=== PATIENT | male | born 1960 | race African-American/Black ===

== ENCOUNTER → 2016-07-28 | Outpatient (CLI) | payer MEDICARE, OTHER ==
[2016-07-31 07:19] LABS: TESTOSTERONE FREE (DIRECT) 6.5 pg/mL (7.2-24.0)
== END ==
LOC: OD 15:17
PROVIDERS: ATTEND Pain Medicine Pain Medicine
DX: Z79.891 Long term (current) use of opiate analgesic (principal)
CPT/HCPCS: 36415; 84402; 84403

== ENCOUNTER 2017-06-14 16:07 | Emergency (ER) | payer MEDICARE, OTHER ==
--- NOTE | 2017-06-14 18:23 | ER Document Report ---
ED General - General Chief Complaint: Ankle Swelling Stated Complaint: JOINT PAIN, SWELLING Time Seen by Provider: 06/14/17 17:58 Mode of Arrival: Ambulatory Information source: Patient TRAVEL OUTSIDE OF THE [place] IN LAST 30 DAYS: No - HPI Notes: 56-year-old male with a history of hypertension, GERD, cardiac stents presents today here with complaints of left lower ankle Swelling, erythema and pain that has been progressively worsening over the last 3 weeks but worse over the last 2 days. Denies any fevers or chills. pain 4/10, achy. Has not tried any over- the-counter medication. Has not tried any elevation. Denies any long travel, recent surgery, hx of blood clots, chemo or long periods of immobilization. denies any n/t in leg. no otc medications tried. denies any trauma to leg. Denies any cp, sob, n/v/d, abd pain, dysuria and hematuria. Denies any chest pain, shortness of breath, nausea, vomiting, diarrhea, or tingling down bilateral lower extremities or weakness. There is any lower back pain, denies issues with bowel or bladder dysfunction. Denies saddle anesthesia. Is being a diabetic. Denies blurred vision, double vision, loss of vision. - Related Data Allergies/Adverse Reactions: aspirin [Aspirin] Allergy (Severe, Verified 06/14/17 17:55) Swelling of Throat ibuprofen [From Motrin] Allergy (Severe, Verified 06/14/17 17:55) Swelling of Throat Past Medical History - General Information source: Patient - Social History Smoking Status: Unknown if Ever Smoked Chew tobacco use (# tins/day): No Frequency of alcohol use: None Drug Abuse: None Family History: Reviewed & Not Pertinent Patient has suicidal ideation: No Patient has homicidal ideation: No - Past Medical History Cardiac Medical History: Reports: Hx Heart Attack, Hx Hypertension Renal/ Medical History: Denies: Hx Peritoneal Dialysis GI Medical History: Reports: Hx Gastroesophageal Reflux Disease Past Surgical History: Reports: Hx Cardiac Surgery - Stents x5 - Immunizations Hx Diphtheria, Pertussis, Tetanus Vaccination: Yes Review of Systems - Review of Systems Constitutional: No symptoms reported EENT: No symptoms reported Cardiovascular: No symptoms reported Respiratory: No symptoms reported Gastrointestinal: No symptoms reported Genitourinary: No symptoms reported Male Genitourinary: No symptoms reported Musculoskeletal: See HPI Skin: See HPI Hematologic/Lymphatic: No symptoms reported Neurological/Psychological: No symptoms reported Physical Exam - Vital signs Vitals: Temp Pulse Resp BP Pulse Ox 98.5 F 88 20 139/77 H 99 06/14/17 16:12 06/14/17 16:12 06/14/17 16:12 06/14/17 16:12 06/14/17 16:12 - Notes Notes: PHYSICAL EXAMINATION: GENERAL: Well-appearing, well-nourished and in no acute distress. HEAD: Atraumatic, normocephalic. EYES: Pupils equal round and reactive to light, extraocular movements intact, sclera anicteric, conjunctiva are normal. ENT: Nares patent, oropharynx clear without exudates. Moist mucous membranes. NECK: Normal range of motion, supple without lymphadenopathy LUNGS: Breath sounds clear to auscultation bilaterally and equal. No wheezes rales or rhonchi. HEART: Regular rate and rhythm without murmurs ABDOMEN: Soft, nontender, nondistended abdomen. No guarding, no rebound. No masses appreciated. Musculoskeletal: Normal range of motion, no pitting or edema. No cyanosis. lrgy calf tenderness with palpation to calf. negative vinod's sign. anterior and posterior drawer test negative.Dtr + 2 in BLE. Full motor and sensory function. no ecchymosis or abrasions noted. distal pulses + 2 bilaterally and equally. Bilateral lower extremity without deformity or asymmetry. Noted edema to let ankle. Noted overlying erythema, warmth to left ankle/calf. No discoloration. skin is warm to touch on left No lesions or break in the skin integrity. No evidence of compartment syndrome, lymphadenopathy, gangrene. No palpable cords or evidence of thrombophlebitis. NEUROLOGICAL: Cranial nerves grossly intact. Normal speech, normal gait. Normal sensory, motor exams PSYCH: Normal mood, normal affect. SKIN: Warm, Dry, normal turgor, no rashes or lesions noted. Course - Re-evaluation Re-evalutation: 06/14/17 21:23Rechecked the patient who is resting comfortably. On re-exam, patient is symptomatically improved. Discussed the results of the labs/ radiology as well as the diagnosis at great length. The patient to take antibiotic with food as directed. Take ibuprofen and Tylenol for pain. Discussed the need to return to the ER for any new or worsening sx. Patient understands to take the Rx as directed. All questions answered. Patient comfortable with the decision to go home. - Vital Signs Vital signs: Temp Pulse Resp BP Pulse Ox 98.5 F 88 20 139/77 H 99 06/14/17 16:12 06/14/17 16:12 06/14/17 16:12 06/14/17 16:12 06/14/17 16:12 - Laboratory Result Diagrams: 06/14/17 19:40 06/14/17 19:40 Laboratory results interpreted by me: 06/14/17 19:40 Hgb 13.4 L Eosinophils % 7.9 H Discharge - Discharge Clinical Impression: Cellulitis Qualifiers: Site of cellulitis: extremity Site of cellulitis of extremity: lower extremity Laterality: left Qualified Code(s): L03.116 - Cellulitis of left lower limb Condition: Good Disposition: HOME, SELF-CARE Instructions: Cellulitis ([facility]) Additional Instructions: Cellulitis You have an infection of your skin and underlying soft tissues called cellulitis. This is due to bacteria, which can enter through any break in the skin, or even through an irritated hair follicle. Untreated, cellulitis will usually worsen. Antibiotics are required. Usually, warm packs or warm soaks, and elevation of the infected area are recommended. You should start getting better within 24 to 36 hours. Most infections respond quickly to the right medication. Follow-up care is important, however, to check for abscess (boil) formation, unsuspected foreign body, or resistant infection. If you develop fever, chills, or if the area of infection is becoming rapidly more swollen or painful, call the doctor at once. Edema, Peripheral You have swelling in your legs. This is called peripheral edema. It can be caused by "leaky capillaries," inflammation, disease of the leg veins, or excess salt and water in your body. Edema may be a sign of heart, kidney, or liver disease. A medical evaluation can determine if there is a serious underlying cause for your edema. Avoid prolonged standing. If you must sit for a long time, occasionally get up and walk around or elevate your legs. Support stockings can be helpful in limiting swelling. Often diuretic or water pills are used to remove excess salt and water from your body. Call the doctor or return if you develop increased swelling, pain, or redness, shortness of breath, chest pain, or any other significant change. Return immediately for any new or worsening symptoms. advised to return to the ER if any signs or symptoms became worse. Take over- the-counter Motrin and Tylenol as needed for any fevers or pain. Follow up with primary care within 1-2 days. All questions and concerns answered by this provider. Patient/family states would follow plan of care and agreed to plan of care. Referrals: CARLY CAAL MD [Primary Care Provider] - Follow up in 3-5 days
--- NOTE | 2017-06-14 19:08 | RADIOLOGY REPORT (SQ) ---
EXAM DESCRIPTION: TIBIA FIBULA LEFT COMPLETED DATE/TIME: 06/14/2017 6:55 pm REASON FOR STUDY: swelling, erythema, pain COMPARISON: None. NUMBER OF VIEWS: Two views. TECHNIQUE: Two radiographic images acquired of the left tibia and fibula to include the knee and ank le in at least one projection. LIMITATIONS: None. FINDINGS: MINERALIZATION: Normal. BONES: No acute fracture or dislocation. No worrisome bone lesions. SOFT TISSUES: No obvious swelling or foreign body. OTHER: Degenerative changes are identified at the level of the knee articulation IMPRESSION: NEGATIVE STUDY OF THE LEFT TIBIA AND FIBULA. NO RADIOGRAPHIC EVIDENCE OF ACUTE INJURY. TECHNICAL DOCUMENTATION: JOB ID: [id number] [email or web address]- All Rights Reserved
[2017-06-14 19:55] LABS: ABSOLUTE BASOPHILS # (AUTO) 0.1 10^3/uL (0.0-0.2); ABSOLUTE EOSINOPHILS # (AUTO) 0.5 10^3/uL (0.0-0.6); ABSOLUTE LYMPHOCYTES (AUTO) 1.9 10^3/uL (0.5-4.7); ABSOLUTE MONOCYTES (AUTO) 0.6 10^3/uL (0.1-1.4); ABSOLUTE NEUT (AUTO) 3.7 10^3/uL (1.7-8.2); BASOPHILS % (AUTO) 1.1 % (0-2); EOSINOPHILS % (AUTO) 7.9 % (0-6); HEMOGLOBIN 13.4 g/dL (13.5-17.0); LYMPHOCYTES % (AUTO) 28.5 % (13-45); MEAN CORPUSCULAR HEMOGLOBIN 29.3 pg (27.0-33.4); MEAN CORPUSCULAR HGB CONC 34.3 g/dL (32.0-36.0); MEAN CORPUSCULAR VOLUME 85 fl (80-97); MONOCYTES % (AUTO) 8.5 % (3-13); PLATELET COUNT 182 10^3/uL (150-450); RED BLOOD COUNT 4.56 10^6/uL (4.35-5.55); RED CELL DISTRIBUTION WIDTH 12.9 % (11.5-14.0); TOTAL CELLS COUNTED % (AUTO) 100 %; WHITE BLOOD COUNT 6.8 10^3/uL (4.0-10.5)
[2017-06-14 20:25] LABS: ALANINE AMINOTRANSFERASE 33 U/L (21-72); ALBUMIN 3.8 g/dL (3.5-5.0); ALKALINE PHOSPHATASE 48 U/L (38-126); ANION GAP 7 (5-19); ASPARTATE AMINO TRANSFERASE 30 U/L (17-59); BILIRUBIN,DIRECT 0.2 mg/dL (0.0-0.4); BILIRUBIN,TOTAL 0.5 mg/dL (0.2-1.3); BLOOD UREA NITROGEN 14 mg/dL (7-20); CALCIUM 9.5 mg/dL (8.4-10.2); CARBON DIOXIDE 30 mmol/L (22-30); CHLORIDE 105 mmol/L (98-107); GLUCOSE 100 mg/dL (75-110); POTASSIUM 3.9 mmol/L (3.6-5.0); SODIUM 141.7 mmol/L (137-145); TOTAL PROTEIN 6.8 g/dL (6.3-8.2); URIC ACID 4.9 mg/dL (3.5-8.5)
[2017-06-14 20:26] LABS: C-REACTIVE PROTEIN < 5.0 mg/L (<10.0)
[2017-06-14 20:31] LABS: ERYTHROCYTE SEDIMENTATION RATE 5 mm/hr (0-20)
[2017-06-14 21:37] VITALS: BP 129/88
--- NOTE | 2017-06-16 12:58 | XCELERA REPORT ---
[address] [address] Lower Extremity Venous Evaluation Name: TAE HASKINS Age: 56 yrs Gender: Male : 1960 Patient Status: Emergency Patient Location: ER Study Date: 06/14/2017 09:08 PM Procedure: Color flow and duplex imaging of the veins of the left lower extremity as well as the right Common Femoral vein. Reason For Study: L ankle/calf erythema, swelling/pain Ordering Physician: CHARLIE UMAÑA Performed By: Katharine Stockton Right Sided Venous Evaluation The right common femoral vein is fully compressible. Spontaneous and phasic flow is present in the right common femoral vein. Left Sided Venous Evaluation Normal vessel filling wall to wall, compression and augmentation as well as Colour flow down to the infrageniculate veins. Interpretation Summary No duplex evidence of DVT or obstruction in the left lower extremity nor in the right Common Femoral vein. : CHARLIE UMAÑA > Mannie Ryan
== END 2017-06-14 21:37 | disposition home or self-care (01) ==
LOC: ER 16:07
DX: L03.116 Cellulitis of left lower limb (principal); I10 Essential (primary) hypertension; I25.2 Old myocardial infarction; Z95.5 Presence of coronary angioplasty implant and graft; Z88.6 Allergy status to analgesic agent
CPT/HCPCS: 36415; 80053; 83880; 84550; 85025; 85652; 86140; 93971; 99284

== ENCOUNTER 2018-06-19 07:37 | Emergency (ER) | payer OTHER, MEDICARE ==
[2018-06-19 08:42] LABS: ALANINE AMINOTRANSFERASE 35 U/L (21-72); ALKALINE PHOSPHATASE 74 U/L (38-126); ANION GAP 8 (5-19); ASPARTATE AMINO TRANSFERASE 34 U/L (17-59); BILIRUBIN,DIRECT 0.3 mg/dL (0.0-0.4); BILIRUBIN,TOTAL 1.3 mg/dL (0.2-1.3); BLOOD UREA NITROGEN 14 mg/dL (7-20); CARBON DIOXIDE 25 mmol/L (22-30); CHLORIDE 101 mmol/L (98-107); CREATINE KINASE 142 U/L (55-170); GLUCOSE 153 mg/dL (75-110); POTASSIUM 3.4 mmol/L (3.6-5.0); SODIUM 134.3 mmol/L (137-145); TOTAL PROTEIN 7.4 g/dL (6.3-8.2)
[2018-06-19 08:52] LABS: HEMATOCRIT 39.2 % (37.9-51.0); HEMOGLOBIN 13.8 g/dL (13.5-17.0); MEAN CORPUSCULAR HEMOGLOBIN 28.8 pg (27.0-33.4); MEAN CORPUSCULAR HGB CONC 35.2 g/dL (32.0-36.0); MEAN CORPUSCULAR VOLUME 82 fl (80-97); PLATELET COUNT 150 10^3/uL (150-450); RED BLOOD COUNT 4.78 10^6/uL (4.35-5.55); RED CELL DISTRIBUTION WIDTH 13.4 % (11.5-14.0)
--- NOTE | 2018-06-19 08:55 | RADIOLOGY REPORT (SQ) ---
EXAM DESCRIPTION: CHEST SINGLE VIEW COMPLETED DATE/TIME: 06/19/2018 8:32 am REASON FOR STUDY: chest pain COMPARISON: None. EXAM PARAMETERS: NUMBER OF VIEWS: One view. TECHNIQUE: Single frontal radiographic view of the chest acquired. RADIATION DOSE: NA LIMITATIONS: None. FINDINGS: LUNGS AND PLEURA: No opacities, masses or pneumothorax. No pleural effusion. MEDIASTINUM AND HILAR STRUCTURES: No masses. Contour normal. HEART AND VASCULAR STRUCTURES: Heart normal in size. Normal vasculature. BONES: No acute findings. HARDWARE: None in the chest. OTHER: No other significant finding. IMPRESSION: NO ACUTE RADIOGRAPHIC FINDING IN THE CHEST. TECHNICAL DOCUMENTATION: JOB ID: [id number] [employer]- All Rights Reserved Reading location - IP/workstation name: [email or web address]
[2018-06-19] MEDS ORDERED: ONDANSETRON HCL INJ/PF 4 MG/2 ML SDV IV ONE (08:56)
--- NOTE | 2018-06-19 08:57 | ER Document Report ---
ED General - General Chief Complaint: Chest Pain Stated Complaint: CHEST PAIN Time Seen by Provider: 06/19/18 08:45 Primary Care Provider: CARLY CAAL MD [Primary Care Provider] - Follow up as needed TRAVEL OUTSIDE OF THE [place] IN LAST 30 DAYS: No - HPI Notes: Patient is a 57-year-old male with a history of hypercholesterolemia, coronary artery disease with 5 stents being placed (last one about 6 years ago), chronic back and knee pain who presents to the emergency department complaining of chest pressure and tightness that started intermittently around midnight and has then become constant. He does have occ nausea. Patient states that his pressure does not radiate. He did have more associated shortness of breath with the pressure, but that has remained tolerable at this time. He has been able to eat and drink without difficulty. He is urinating normally and having normal bowel movements. Patient states that he is on Plavix, but no other blood thinning me dication. Denies any prolonged immobilization, distance travel, recent surgery/trauma, personal cancer history, hormone use, smoking, or previous DVT/PE. Denies any headache, fever, neck pain, URI, sore throat, palpitations, syncope, cough, wheezing, abdominal pain, vomiting/diarrhea, urinary retention, dysuria, hematuria, loss of control of bowel or bladder, numbness/tingling, saddle anesthesia, muscle paralysis/weakness, or rash. - Related Data Allergies/Adverse Reactions: aspirin [Aspirin] Allergy (Severe, Verified 06/19/18 07:39) Swelling of Throat ibuprofen [From Motrin] Allergy (Severe, Verified 06/19/18 07:39) Swelling of Throat Past Medical History - Social History Smoking Status: Former Smoker Chew tobacco use (# tins/day): No Frequency of alcohol use: None Drug Abuse: None Family History: Reviewed & Not Pertinent Patient has suicidal ideation: No Patient has homicidal ideation: No - Past Medical History Cardiac Medical History: Reports: Hx Heart Attack, Hx Hypercholesterolemia, Hx Hypertension Renal/ Medical History: Denies: Hx Peritoneal Dialysis GI Medical History: Reports: Hx Gastroesophageal Reflux Disease Past Surgical History: Reports: Hx Cardiac Catheterization, Hx Cardiac Surgery - Stents x5, Hx Orthopedic Surgery - Immunizations Hx Diphtheria, Pertussis, Tetanus Vaccination: Yes Review of Systems - Review of Systems -: Yes All other systems reviewed and negative Physical Exam - Vital signs Vitals: Temp Pulse Resp BP Pulse Ox 99 F 120 H 20 135/90 H 99 06/19/18 07:44 06/19/18 07:44 06/19/18 07:44 06/19/18 07:44 06/19/18 07:44 - Notes Notes: PHYSICAL EXAMINATION: GENERAL: Well-appearing, well-nourished and in no acute distress. HEAD: Atraumatic, normocephalic. EYES: Pupils equal round and reactive to light, extraocular movements intact, sclera anicteric, conjunctiva are normal. ENT: Nares patent and without discharge. oropharynx clear without exudates. No tonsilar hypertrophy or erythema. Moist mucous membranes. NECK: Normal range of motion, supple without lymphadenopathy LUNGS: Breath sounds clear to auscultation bilaterally and equal. No wheezes rales or rhonchi. HEART: Regular rate and rhythm without murmurs, rubs, gallops. ABDOMEN: Soft, nontender, nondistended abdomen. No guarding, no rebound. No masses appreciated. Normal bowel sounds present. No CVA tenderness bilaterally. Musculoskeletal: FROM to passive/active. Strength 5+/5. Imelda neg. No asymmetry to LE's. Extremities: No cyanosis, clubbing, or edema b/l. Peripheral pulses 2+. Capillary refill less than 3 seconds. NEUROLOGICAL: Normal speech, normal gait. PSYCH: Normal mood, normal affect. SKIN: Warm, Dry, normal turgor, no rashes or lesions noted. Course - Re-evaluation Re-evalutation: 06/19/18 08:56 Pt currently has a heart rate that varies from 90-106 during my evaluation with a pulse ox of 98% on room air. Respiratory rate is 20. I did review initial eval with Dr. Huston. We will obtain a d-dimer prior to considering CTA of the chest at this time. 06/19/18 12:02 CBC shows a mildly elevated white count with some bandemia. Enzyme currently un remarkable. D-dimer was elevated and CTA was ordered and negative. Chest x-ray also unremarkable. I did speak with Dr. Caal for admitting the patient for chest pain observation as patient does continue to have "a little" chest pain. Dr. Caal would like a repeat troponin and if it is negative he wants him discharged home with follow-up in his office. 06/19/18 14:14 Patient is an afebrile, well-hydrated 57-year-old male who presents to the ED with atypical chest pain. Vitals are acceptable without any significant tachycardia, tachypnea, or hypoxia. PE is otherwise unremarkable. Patient is nontoxic-appearing and is tolerating p.o. without any difficulties. Pt is currently asymptomatic. CBC, CMP, EKG/cardiac enzymes 2, chest x-ray, CTA are all unremarkable for any acute pathology. Patient has a heart score of 4. Patient does not have any chest pain, dyspnea, or shortness of breath. His PCM would like him to f/u as an outpatient and not to be admitted at this time. Cole fonseca is aware that his condition can change from initial presentation and he needs to monitor symptoms closely and seek medical attention for any acute changes. Recommend conservative measures for symptoms. Recheck with your PCM in 2-3 days. Consider consult with Cardiology. Return to the ED with any worsening/concerning symptoms otherwise as reviewed in discharge. Patient is in agreement. - Vital Signs Vital signs: Temp Pulse Resp BP Pulse Ox 99.0 F 123 H 26 H 135/82 H 100 06/19/18 07:45 06/19/18 07:45 06/19/18 12:00 06/19/18 10:48 06/19/18 12:00 - Laboratory Result Diagrams: 06/19/18 08:05 06/19/18 08:05 Laboratory results interpreted by me: 06/19/18 06/19/18 06/19/18 08:05 08:05 08:05 WBC 11.0 H Seg Neuts % (Manual) 89 H Band Neutrophils % 6 H Lymphocytes % (Manual) 2 L Monocytes % (Manual) 1 L Abs Neuts (Manual) 10.5 H Abs Lymphs (Manual) 0.4 L D-Dimer 3.45 H Sodium 134.3 L Potassium 3.4 L Glucose 153 H Discharge - Discharge Clinical Impression: Atypical chest pain Condition: Stable Disposition: HOME, SELF-CARE Instructions: Chest Pain of Unclear Cause ([facility]) Additional Instructions: Maintain adequate fluid and food intake Take home medications as directed Low sodium/fat diet Monitor blood pressure daily and keep a log Monitor symptoms for any acute changes Recheck with your PCM in 2-3 days, call tomorrow Consider a follow-up with cardiology Return to the ED with any worsening symptoms and/or development of fever, headache, chest pain, palpitations, syncope, shortness of breath, trouble breathing, abdominal pain, n/v/d, blood in stool/urine, loss of control of bowel/bladder, urinary retention, muscle weakness/paralysis, numbness/tingling, or other worsening symptoms that are concerning to you. Forms: Elevated Blood Pressure Referrals: CARLY CAAL MD [Primary Care Provider] - 06/21/18
[2018-06-19 09:13] LABS: TROPONIN I < 0.012 ng/mL
[2018-06-19 09:32] LABS: ABSOLUTE LYMPHOCYTES# (MANUAL) 0.4 10^3/uL (0.5-4.7); ABSOLUTE MONOCYTES # (MANUAL) 0.1 10^3/uL (0.1-1.4); ABSOLUTE NEUTROPHILS# (MANUAL) 10.5 10^3/uL (1.7-8.2); BAND NEUTROPHILS % (MANUAL) 6 % (3-5); BASOPHILS % (MANUAL) 0 % (0-2); EOSINOPHILS % (MANUAL) 0 % (0-6); HYPOCHROMASIA SLIGHT; LYMPHOCYTES % (MANUAL) 2 % (13-45); MONOCYTES % (MANUAL) 1 % (3-13); OVALOCYTES SLIGHT; PLATELET COMMENT ADEQUATE; POIKILOCYTOSIS SLIGHT; POLYCHROMASIA SLIGHT; SEGMENTED NEUTROPHILS % (MAN) 89 % (42-78); TOTAL CELLS COUNTED 100; TOXIC GRANULATION SLIGHT; TOXIC VACUOLATION PRESENT
[2018-06-19] MEDS ORDERED: MORPHINE SULFATE 10 MG/ML INJ IV ONE ×2 (10:27→14:17)
--- NOTE | 2018-06-19 11:17 | RADIOLOGY REPORT (SQ) ---
EXAM DESCRIPTION: CTA CHEST COMPLETED DATE/TIME: 06/19/2018 11:03 am REASON FOR STUDY: CP COMPARISON: Same day chest radiograph TECHNIQUE: CT scan of the chest performed using helical scanning technique with dynamic intravenous contrast injection. Images reviewed with lung, soft tissue and bone windows. Reconstructed coronal and sagittal MPR images reviewed. Additional 3 dimensional post-processing performed to develop Maximal Intensity Projection images (AR P). All images stored on PACS. All CT scanners at this facility use dose modulation, iterative reconstruction, and/or weight based d osing when appropriate to reduce radiation dose to as low as reasonably achievable (ALARA). [facility]: Dose Right [facility]: CareDose [facility]: Dose Right [facility]: Teradose 4D [facility]: [employer] CONTRAST TYPE AND DOSE: contrast/concentration: Isovue 350.00 mg/ml; Total Contrast Delivered: 83.0 ml; Total Saline Delivered: 85.6 ml Contrast bolus optimized for the pulmonary arteries. Not diagnostic for the aorta. RENAL FUNCTION: GFR > 60. RADIATION DOSE: CT Rad equipment meets quality standard of care and radiation dose reduction techniq ues were employed. CTDIvol: 16.5 - 20.4 mGy. DLP: 772 mGy-cm. . LIMITATIONS: None. FINDINGS: LUNGS AND PLEURA: No masses, infiltrates, or pneumothorax. No pleural effusions or pleura l calcifications. AORTA AND GREAT VESSELS: No aneurysm. Contrast bolus not optimized for the aorta. HEART: No pericardial effusion. Extensive 3 vessel coronary artery calcifications. PULMONARY ARTERIES: Examination limited by marginal contrast bolus (main pulmonary artery HU = 127). Within this limitation, no central or lobar pulmonary embolism. Examination nondiagnostic in the se gmental to subsegmental vessels. HILAR AND MEDIASTINAL STRUCTURES: No identified masses or abnormal nodes. HARDWARE: None in the chest. UPPER ABDOMEN: No significant findings. Limited exam. THYROID AND OTHER SOFT TISSUES: No masses. No adenopathy. BONES: No acute or significant finding. 3D MIPS: Confirm above findings. OTHER: No other significant finding. IMPRESSION: 1. Examination limited by marginal contrast bolus (main pulmonary artery HU = 127). Wit hin this limitation, no central or lobar pulmonary embolism. Examination nondiagnostic in the segmen ruby to subsegmental vessels. 2. Coronary artery disease. COMMENT: Quality ID # [id number]: Final reports with documentation of one or more dose reduction techniques (e.g., Automated exposure control, adjustment of the mA and/or kV according to patient size, use of iterative reconstruction technique) TECHNICAL DOCUMENTATION: JOB ID: [id number] [employer]- All Rights Reserved Reading location - IP/workstation name: [email or web address]
[2018-06-19] MEDS ORDERED: NITROGLYCERIN 0.4 MG/TAB 25 TAB/BOTTLE SL PRN (11:58)
[2018-06-19 15:45] VITALS: BP 119/70
--- NOTE | 2018-06-19 18:37 | EKG REPORT ---
SEVERITY:- OTHERWISE NORMAL ECG - SINUS TACHYCARDIA BORDERLINE LEFT AXIS DEVIATION : Confirmed by: Floresita Rubin MD 19-Jun-2018 18:36:32
== END 2018-06-19 14:45 | disposition home or self-care (01) ==
LOC: ER 07:37
DX: R07.89 Other chest pain (principal); M54.9 Dorsalgia, unspecified; G89.29 Other chronic pain; M25.569 Pain in unspecified knee; R11.0 Nausea; R06.02 Shortness of breath; Z79.02 Long term (current) use of antithrombotics/antiplatelets; Z87.891 Personal history of nicotine dependence; I25.10 Atherosclerotic heart disease of native coronary artery without angina pectoris
CPT/HCPCS: 93005; 96376; 99285; 96374; 96375; 36415; 82553; 82550; 85025; 80053; 84484; 85379; 71045; 71275; 93010; J2270; J2405

== ENCOUNTER 2020-03-26 12:52 | Inpatient (IN) | payer OTHER, MEDICARE ==
[2020-03-26] MEDS ORDERED: CEFTRIAXONE 2 GM/D5W RTU 2 GM/50 ML RTUPB IV ONE (13:26)
[2020-03-26] MEDS ORDERED: AZITHROMYCIN 250 MG TABLET PO ONE (13:26)
[2020-03-26] MEDS ORDERED: ACETAMINOPHEN 325 MG TABLET PO ONE (13:26)
[2020-03-26 13:42] LABS: VENOUS BLOOD BASE EXCESS 0.6 mmol/L; VENOUS BLOOD HCO3 24.1 mmol/L (20-32); VENOUS BLOOD PCO2 35.3 mmHg (35-63); VENOUS BLOOD PH 7.45 (7.30-7.42)
[2020-03-26 13:44] LABS: ABSOLUTE LYMPHOCYTES (AUTO) 0.8 10^3/uL (0.5-4.7); ABSOLUTE MONOCYTES (AUTO) 1.3 10^3/uL (0.1-1.4); ABSOLUTE NEUT (AUTO) 9.9 10^3/uL (1.7-8.2); BASOPHILS % (AUTO) 0.2 % (0-2); EOSINOPHILS % (AUTO) 0.1 % (0-6); HEMATOCRIT 37.2 % (37.9-51.0); INTERNATIONAL RATION (INR) 1.08; LYMPHOCYTES % (AUTO) 6.6 % (13-45); MEAN CORPUSCULAR HEMOGLOBIN 28.7 pg (27.0-33.4); MEAN CORPUSCULAR VOLUME 82 fl (80-97); MONOCYTES % (AUTO) 10.8 % (3-13); PLATELET COUNT 194 10^3/uL (150-450); PROTHROMBIN TIME 14.2 SEC (11.4-15.4); RED BLOOD COUNT 4.53 10^6/uL (4.35-5.55); RED CELL DISTRIBUTION WIDTH 13.1 % (11.5-14.0); SEGMENTED NEUTROPHILS % (AUTO) 82.3 % (42-78); TOTAL CELLS COUNTED % (AUTO) 100 %; WHITE BLOOD COUNT 11.9 10^3/uL (4.0-10.5)
[2020-03-26 13:49] LABS: ALBUMIN 3.1 g/dL (3.5-5.0); ALKALINE PHOSPHATASE 76 U/L (38-126); ANION GAP 9 (5-19); ASPARTATE AMINO TRANSFERASE 63 U/L (17-59); BILIRUBIN,DIRECT 0.4 mg/dL (0.0-0.4); BILIRUBIN,TOTAL 1.2 mg/dL (0.2-1.3); BLOOD UREA NITROGEN 9 mg/dL (7-20); CALCIUM 7.8 mg/dL (8.4-10.2); CARBON DIOXIDE 23 mmol/L (22-30); CHLORIDE 103 mmol/L (98-107); GLUCOSE 136 mg/dL (75-110); TOTAL PROTEIN 6.9 g/dL (6.3-8.2)
--- NOTE | 2020-03-26 13:51 | RADIOLOGY REPORT (SQ) ---
EXAM DESCRIPTION: CHEST SINGLE VIEW IMAGES COMPLETED DATE/TIME: 03/26/2020 1:44 pm REASON FOR STUDY: sob COMPARISON: 06/19/2018 EXAM PARAMETERS: NUMBER OF VIEWS: One view. TECHNIQUE: Single frontal radiographic view of the chest acquired. RADIATION DOSE: NA LIMITATIONS: None. FINDINGS: LUNGS AND PLEURA: Bibasilar infiltrates right greater than left. Upper lung mays are cl ear. No effusions. MEDIASTINUM AND HILAR STRUCTURES: No masses. Contour normal. HEART AND VASCULAR STRUCTURES: Heart normal in size. Normal vasculature. BONES: No acute findings. HARDWARE: None in the chest. OTHER: No other significant finding. IMPRESSION: Bibasilar infiltrates right greater than left. Findings are most consistent with pneumo herman. TECHNICAL DOCUMENTATION: JOB ID: [id number] 2010 [employer]- All Rights Reserved Reading location - IP/workstation name: [email or web address]
[2020-03-26 14:00] LABS: TROPONIN I 0.019 ng/mL
[2020-03-26] MEDS ORDERED: NORMAL SALINE 1000 ML 1,000 ML IV ONE ×2 (14:24→14:25)
[2020-03-26] MEDS ORDERED: POTASSIUM CHLORIDE 10 MEQ TABLET.ER PO ONE (14:24)
--- NOTE | 2020-03-26 14:34 | ER Document Report ---
ED Flu Like - General Chief Complaint: Flu Symptoms Stated Complaint: SOB Time Seen by Provider: 03/26/20 13:03 Primary Care Provider: CARLY CAAL MD [Primary Care Provider] - Follow up as needed Information source: Patient TRAVEL OUTSIDE OF THE [place] IN LAST 30 DAYS: No - HPI Notes: Patient is brought in secondary to shortness of breath, fever, and cough. He states he has had this for approximately 2 weeks and is gradually getting worse. He states he has had no known Covid exposures. No vomiting or diarrhea. He states he is having some chest tightness. It is mainly worse with exertion and better with rest. His cough has been primarily nonproductive. Patient has been sweating as well. His symptoms have been moderate to severe. They have been relatively constant. - Related Data Allergies/Adverse Reactions: aspirin [Aspirin] Allergy (Severe, Verified 06/19/18 07:39) Swelling of Throat ibuprofen [From Motrin] Allergy (Severe, Verified 06/19/18 07:39) Swelling of Throat Past Medical History - General Information source: Patient - Social History Smoking Status: Former Smoker Frequency of alcohol use: None Drug Abuse: Heroin, Methamphetamine, Prescription drugs Family History: Reviewed & Not Pertinent - Past Medical History Cardiac Medical History: Reports: Hx Heart Attack, Hx Hypercholesterolemia, Hx Hypertension Renal/ Medical History: Denies: Hx Peritoneal Dialysis GI Medical History: Reports: Hx Gastroesophageal Reflux Disease Past Surgical History: Reports: Hx Cardiac Catheterization, Hx Cardiac Surgery - Stents x5, Hx Orthopedic Surgery - Immunizations Hx Diphtheria, Pertussis, Tetanus Vaccination: Yes Review of Systems - Review of Systems Constitutional: Chills, Fever, Malaise, Weakness Cardiovascular: Palpitations, Edema Respiratory: Cough, Short of breath -: Yes All other systems reviewed and negative Physical Exam - Vital signs Vitals: Resp Pulse Ox 23 H 98 03/26/20 13:05 03/26/20 13:05 Interpretation: Tachycardic, Tachypneic, Febrile - General General appearance: Alert, Anxious - HEENT Head: Normocephalic, Atraumatic Eyes: Normal Pupils: PERRL - Respiratory Respiratory status: Tachypnea Chest status: Nontender Breath sounds: Decreased air movement, Rhonchi Chest palpation: Normal - Cardiovascular Rhythm: Tachycardia Heart sounds: Normal auscultation Murmur: No - Abdominal Inspection: Normal Distension: No distension Bowel sounds: Normal Tenderness: Nontender Organomegaly: No organomegaly - Back Back: Normal, Nontender - Extremities General upper extremity: Normal inspection, Nontender, Normal color, Normal ROM, Normal temperature General lower extremity: Normal inspection, Nontender, Edema - 2+ bilaterally, Normal color, Normal ROM, Normal temperature - Neurological Neuro grossly intact: Yes Cognition: Normal Orientation: AAOx4 [place] Coma Scale Eye Opening: Spontaneous [place] Coma Scale Verbal: Oriented [place] Coma Scale Motor: Obeys Commands Aakash Coma Scale Total: 15 Speech: Normal Motor strength normal: LUE, RUE, LLE, RLE Sensory: Normal - Psychological Associated symptoms: Normal affect, Normal mood - Skin Skin Temperature: Warm Skin Moisture: Diaphoretic Skin Color: Normal Course - Re-evaluation Re-evalutation: 03/26/20 14:33 The patient was evaluated during a global COVID-19 pandemic and that diagnosis was suspected/considered upon their initial presentation. Their evaluation, treatment and testing was consistent with current guidelines for patients who present with complaints or symptoms and may be related to COVID-19. Patient presents diaphoretic tachypneic tachycardic. He has obvious bilateral pneumonia on x-ray. Patient is suspicious for Covid pneumonia at this time a Covid test is pending. Until the Covid test is resulted we will treat the patient with fluids and antibiotics and admit the patient to the hospital. - Vital Signs Vital signs: Temp Pulse Resp BP Pulse Ox 100.5 F H 17 139/76 H 98 03/26/20 13:30 03/26/20 14:01 03/26/20 14:01 03/26/20 14:01 - Laboratory Result Diagrams: 03/26/20 13:10 03/26/20 13:10 Laboratory results interpreted by me: 03/26/20 03/26/20 03/26/20 13:10 13:10 13:10 WBC 11.9 H Hgb 13.0 L Hct 37.2 L Lymph % (Auto) 6.6 L Absolute Neuts (auto) 9.9 H Seg Neutrophils % 82.3 H VBG pH 7.45 H Sodium 135.0 L Potassium 3.0 L* Glucose 136 H Calcium 7.8 L AST 63 H ALT 65 H Albumin 3.1 L - Diagnostic Test Radiology reviewed: Image reviewed, Reports reviewed - EKG Interpretation by Me EKG shows normal: Sinus rhythm Rate: Tachycardia - 112 Rhythm: NSR Voltage: Consistent with LVH Discharge - Discharge Clinical Impression: Person under investigation for COVID-19 Pneumonia Qualifiers: Pneumonia type: due to unspecified organism Laterality: bilateral Lung location: lower lobe of lung Qualified Code(s): J18.9 - Pneumonia, unspecified organism Condition: Serious Disposition: ADMITTED INPATIENT Admitting Provider: Nicolajoycesd Unit Admitted: [facility]
[2020-03-26 14:59] LABS: A TYPE INFLUENZA AG NEGATIVE (NEGATIVE); B INFLUENZA AG NEGATIVE (NEGATIVE)
[2020-03-26 16:09] LABS: APPEARANCE,URINE CLEAR; BILIRUBIN,URINE NEGATIVE (NEGATIVE); COLOR,URINE YELLOW; GLUCOSE, URINE NEGATIVE (NEGATIVE); KETONES,URINE NEGATIVE (NEGATIVE); PROTEIN,URINE NEGATIVE (NEGATIVE); URINE SPECIFIC GRAVITY 1.004
--- NOTE | 2020-03-26 16:58 | PDOC H&P ---
History of Present Illness Admission Date/PCP: 03/26/20 15:05 CARLY CAAL History of Present Illness: TAE HASKINS is a 59 year old male, Patient came to the emergency room for evaluation of respiratory symptoms, shortness of breath, fever and cough, he said he has the symptoms for the last 2 weeks, progressively getting worse. He denies any exposure to SARS-CoV-2 infection, he has no vomiting or diarrhea. In the emergency room he was evaluated because of concern for SARS-CoV-2 infection inpatient care was advised by the ED provider. CT angiogram of the chest was done, there was no pulmonary embolus there was groundglass opacities. Patient said he has chronic pain on OxyContin 60 mg p.o. twice daily and oxycodone 15 mg every 4 hours as needed, pharmacist reconciled the medication for the patient he told the pharmacist that he fills at [facility] local [facility] but the pharmacist said the last time he fills his medication was in 2019. He supposedly have history of ischemic heart disease with multiple stent placements patient have no record of medication that he takes on a consistent basis. Past Medical History Cardiac Medical History: Reports: Coronary Artery Disease, Myocardial Infarction, Hyperlipidema, Hypertension Pulmonary Medical History: Reports: Chronic Obstructive Pulmonary Disease (COPD) GI Medical History: Reports: Gastroesophageal Reflux Disease Past Surgical History Past Surgical History: Reports: Cardiac Catheterization, Orthopedic Surgery Social History Smoking Status: Former Smoker Family History Family History: Reviewed & Not Pertinent Parental Family History Reviewed: Yes Children Family History Reviewed: Yes Sibling(s) Family History Reviewed.: Yes Medication/Allergy Home Medications: No Home Medications 03/27/20 Allergies/Adverse Reactions: aspirin [Aspirin] Allergy (Severe, Verified 06/19/18 07:39) Swelling of Throat ibuprofen [From Motrin] Allergy (Severe, Verified 06/19/18 07:39) Swelling of Throat Review of Systems Constitutional: PRESENT: fever(s). ABSENT: chills, headache(s), weight gain, weight loss Eyes: ABSENT: visual disturbances Ears: ABSENT: hearing changes Cardiovascular: ABSENT: chest pain, dyspnea on exertion, edema, orthropnea, palpitations Respiratory: PRESENT: cough, dyspnea. ABSENT: hemoptysis Gastrointestinal: ABSENT: abdominal pain, constipation, diarrhea, hematemesis, hematochezia, nausea, vomiting Genitourinary: ABSENT: dysuria, hematuria Musculoskeletal: PRESENT: back pain. ABSENT: joint swelling Integumentary: ABSENT: rash, wounds Neurological: ABSENT: abnormal gait, abnormal speech, confusion, dizziness, focal weakness, syncope Psychiatric: ABSENT: anxiety, depression, homidical ideation, suicidal ideation Endocrine: ABSENT: cold intolerance, heat intolerance, menstrual abnormalities, polydipsia, polyuria Hematologic/Lymphatic: ABSENT: easy bleeding, easy bruising, lymphadenopathy Physical Exam Vital Signs: Temp Pulse Resp BP Pulse Ox 98.3 F 16 143/82 H 97 03/26/20 16:01 03/26/20 16:01 03/26/20 16:01 03/26/20 16:01 Intake & Output 03/25/20 03/26/20 03/27/20 06:59 06:59 06:59 Intake Total 2049 Balance 2049 Weight 108.862 kg General appearance: PRESENT: no acute distress, well-developed, well-nourished Head exam: PRESENT: atraumatic, normocephalic Eye exam: PRESENT: conjunctiva pink, EOMI, PERRLA Ear exam: PRESENT: normal external ear exam Mouth exam: PRESENT: moist, tongue midline Neck exam: PRESENT: full ROM Respiratory exam: PRESENT: clear to auscultation patricia Cardiovascular exam: PRESENT: RRR, +S1, +S2 Pulses: PRESENT: normal dorsalis pedis pul, +2 pedal pulses bilateral Vascular exam: PRESENT: normal capillary refill GI/Abdominal exam: PRESENT: normal bowel sounds, soft Rectal exam: PRESENT: deferred Neurological exam: PRESENT: alert, CN II-XII grossly intact Psychiatric exam: PRESENT: appropriate affect, normal mood Skin exam: PRESENT: dry, intact, warm Results Laboratory Results: 03/26/20 13:10 03/26/20 13:10 03/26/20 03/26/20 03/26/20 13:10 13:10 13:10 WBC 11.9 H RBC 4.53 Hgb 13.0 L Hct 37.2 L MCV 82 MCH 28.7 MCHC 35.0 RDW 13.1 Plt Count 194 Seg Neutrophils % 82.3 H VBG pH 7.45 H VBG pCO2 35.3 VBG HCO3 24.1 VBG Base Excess 0.6 Sodium 135.0 L Potassium 3.0 L* Chloride 103 Carbon Dioxide 23 Anion Gap 9 BUN 9 Creatinine 0.77 Est GFR ( Amer) > 60 Glucose 136 H Lactic Acid Calcium 7.8 L Total Bilirubin 1.2 AST 63 H Alkaline Phosphatase 76 Total Protein 6.9 Albumin 3.1 L Urine Color Urine Appearance Urine pH Ur Specific [place] Urine Protein Urine Glucose (UA) Urine Ketones Urine Blood Urine RBC (Auto) 03/26/20 03/26/20 13:10 15:44 WBC RBC Hgb Hct MCV MCH MCHC RDW Plt Count Seg Neutrophils % VBG pH VBG pCO2 VBG HCO3 VBG Base Excess Sodium Potassium Chloride Carbon Dioxide Anion Gap BUN Creatinine Est GFR ( Amer) Glucose Lactic Acid 1.3 Calcium Total Bilirubin AST Alkaline Phosphatase Total Protein Albumin Urine Color YELLOW Urine Appearance CLEAR Urine pH 6.0 Ur Specific [place] 1.004 Urine Protein NEGATIVE Urine Glucose (UA) NEGATIVE Urine Ketones NEGATIVE Urine Blood NEGATIVE Urine RBC (Auto) 0 03/26/20 13:10 Troponin I 0.019 NT-Pro-B Natriuret Pep 88 Impressions: Chest X-Ray 03/26/20 13:25 IMPRESSION: Bibasilar infiltrates right greater than left. Findings are most consistent with pneumonia. Assessment & Plan - Diagnosis (1) Pneumonia Qualifiers: Pneumonia type: due to unspecified organism Laterality: bilateral Lung location: lower lobe of lung Qualified Code(s): J18.9 - Pneumonia, unspecified organism Is this a current diagnosis for this admission?: Yes Plan: Patient with pneumonia, he will be treated for CAP (2) Elevated troponin Is this a current diagnosis for this admission?: Yes Plan: The potential diagnosis include, pneumonia, non-STEMI, patient with a history of CAD, not on any maintenance medication including statin, beta-dania, he will be empirically treated with Lovenox 1 mg/kg body weight every 12 (3) Person under investigation for COVID-19 Is this a current diagnosis for this admission?: Yes - Time Time Spent: Greater than 70 Minutes Medications reviewed and adjusted accordingly: Yes Anticipated Discharge Disposition: Home, Self Care Anticipated Discharge Timeframe: within 72 hours
[2020-03-26] MEDS ORDERED: CEFEPIME 2 GM/D5W RTU 50 ML IV SCH (17:00)
--- NOTE | 2020-03-26 17:51 | EKG REPORT ---
SEVERITY:- ABNORMAL ECG - SINUS TACHYCARDIA LEFT VENTRICULAR HYPERTROPHY : Confirmed by: Radames Yañez MD 26-Mar-2020 17:51:20
[2020-03-26] MEDS: LEVOFLOXACIN 750 MG/D5W RTU 750 MG/150 ML RTUPB IV SCH (17:55)
[2020-03-26 17:59] LABS: APPEARANCE,URINE CLEAR; BILIRUBIN,URINE NEGATIVE (NEGATIVE); COLOR,URINE YELLOW; GLUCOSE, URINE NEGATIVE (NEGATIVE); KETONES,URINE NEGATIVE (NEGATIVE); LEUKOCYTE ESTERASE,URINE NEGATIVE (NEGATIVE); NITRITE,URINE NEGATIVE (NEGATIVE); PROTEIN,URINE NEGATIVE (NEGATIVE); URINE SPECIFIC GRAVITY 1.004
[2020-03-26] MEDS ORDERED: ENOXAPARIN SODIUM INJ 40 MG/0.4 ML DISP.SYRIN SUBCUT SCH (18:00)
[2020-03-26] MEDS: RINGERS SOLUTION,LACTATED 1,000 ML IV PRN (18:12)
[2020-03-26 18:17] LABS: CREATINE KINASE MB 3.97 ng/mL (<4.55)
[2020-03-26 18:20] LABS: TROPONIN I 0.128 ng/mL
[2020-03-26 20:27] LABS: CREATINE KINASE MB 4.74 ng/mL (<4.55)
[2020-03-26 20:36] LABS: TROPONIN I 0.161 ng/mL
[2020-03-26] MEDS ORDERED: CLOPIDOGREL BISULFATE 300 MG TABLET PO ONE (22:00)
[2020-03-26] MEDS ORDERED: OXYCODONE HCL IR 5 MG TABLET PO ONE (22:00)
[2020-03-26] MEDS: CEFEPIME HCL 2 GM in DEXTROSE 5%-WATER 50 ML IV SCH (22:24)
--- NOTE | 2020-03-27 00:15 | RADIOLOGY REPORT (SQ) ---
EXAM DESCRIPTION: CT CHEST ANGIOGRAPHY WITHOUT THEN WITH IV CONTRAST COMPLETED DATE/TME: 03/26/2020 00:00 EXAM DESCRIPTION: CLINICAL HISTORY: SOB. CREAT 0.77 COMPARISON: 06/19/2018 TECHNIQUE: CTA of the chest obtained following the uncomplicated intravenous administration of 75 mL Omnipaque 350. 3-D/MIP reformatted images of the chest available for evaluation. Respiratory motion artifact. FINDINGS: Chest: Pulmonary arteries: Contrast bolus is adequate.No filling defects identified in the pulmonary arteries to suggest pulmonary embolus. Suboptimal evaluation of the basilar segmental pulmonary arteries due to significant motion artifact. Thyroid:No abnormalities of the visualized thyroid. Great Vessels:Great vessels have normal anatomic configuration. Thoracic Aorta: Atherosclerotic calcification of the thoracic aorta. Heart: Coronary artery atherosclerosis. Heart is not enlarged. No significant pericardial effusion. Lymph Nodes:No enlarged mediastinal lymph nodes identified. Esophagus:No abnormalities of the esophagus identified. Other:No additional findings. Lungs: Scattered bilateral peripheral and central groundglass and airspace opacities. There is a 0.5 cm superior segment left lower lobe solid pulmonary nodule best seen on image #55, series #4. Pleura:No pleural effusion or pneumothorax. Trachea/Airways:No abnormalities of the visualized trachea or airways. Bones: Mild multilevel degenerative endplate spondylosis. Upper Abdomen:Limited images of the upper abdomen demonstrate no definite abnormalities of visualized portions of the liver, gallbladder, pancreas, spleen, adrenal glands, or kidneys. IMPRESSION: 1. No pulmonary embolus. 2. Scattered patchy bilateral airspace opacities. Commonly reported imaging features of viral pneumonia are present. Other processes such as influenza pneumonia and organizing pneumonia, as can be seen with drug toxicity and connective tissue disease, can cause a similar imaging pattern. [PneTyp] Reference: https://pubs.rsna.org/doi/full/10.1148/ryct.5732415259 3. 5 mm left solid pulmonary nodule. No routine follow-up imaging is recommended. These guidelines do not apply to immunocompromised patients and patients with cancer. Follow up in patients with significant comorbidities as clinically warranted. For lung cancer screening, adhere to Lung-RADS guidelines. Reference: Radiology. 2017; 284(1):228-43. This exam was performed according to our departmental dose-optimization program, which includes automated exposure control, adjustment of the mA and/or kV according to patient size and/or use of iterative reconstruction technique.
[2020-03-27 02:34] LABS: CREATINE KINASE MB 3.36 ng/mL (<4.55)
[2020-03-27 02:36] LABS: TROPONIN I 0.265 ng/mL
[2020-03-27] MEDS: ENOXAPARIN SODIUM INJ 100 MG/1 ML DISP.SYRIN SUBCUT SCH ×2 (05:33→17:15)
[2020-03-27 05:42] LABS: APPEARANCE,URINE CLEAR; BILIRUBIN,URINE NEGATIVE (NEGATIVE); COLOR,URINE YELLOW; GLUCOSE, URINE NEGATIVE (NEGATIVE); KETONES,URINE NEGATIVE (NEGATIVE); LEUKOCYTE ESTERASE,URINE NEGATIVE (NEGATIVE); NITRITE,URINE NEGATIVE (NEGATIVE); PROTEIN,URINE NEGATIVE (NEGATIVE); URINE SPECIFIC GRAVITY 1.028
[2020-03-27] MEDS ORDERED: INFLUENZA QUAD (6MOS+) 2020-21 VAC 0.5 ML SYR IM ONE (08:00)
[2020-03-27 09:10] LABS: ABSOLUTE EOSINOPHILS # (AUTO) 0.1 10^3/uL (0.0-0.6); ABSOLUTE LYMPHOCYTES (AUTO) 1.9 10^3/uL (0.5-4.7); ABSOLUTE MONOCYTES (AUTO) 1.5 10^3/uL (0.1-1.4); ABSOLUTE NEUT (AUTO) 7.4 10^3/uL (1.7-8.2); BASOPHILS % (AUTO) 0.3 % (0-2); EOSINOPHILS % (AUTO) 0.6 % (0-6); HEMATOCRIT 37.7 % (37.9-51.0); HEMOGLOBIN 13.3 g/dL (13.5-17.0); MEAN CORPUSCULAR HGB CONC 35.4 g/dL (32.0-36.0); MEAN CORPUSCULAR VOLUME 82 fl (80-97); MONOCYTES % (AUTO) 13.9 % (3-13); PLATELET COUNT 194 10^3/uL (150-450); RED CELL DISTRIBUTION WIDTH 12.6 % (11.5-14.0); SEGMENTED NEUTROPHILS % (AUTO) 68.2 % (42-78); TOTAL CELLS COUNTED % (AUTO) 100 %; WHITE BLOOD COUNT 10.9 10^3/uL (4.0-10.5)
[2020-03-27] MEDS: CEFEPIME HCL 2 GM in DEXTROSE 5%-WATER 50 ML IV SCH ×2 (09:10→21:12)
[2020-03-27] MEDS: CLOPIDOGREL BISULFATE 75 MG TABLET PO SCH (09:10)
[2020-03-27 09:35] LABS: ALBUMIN 3.8 g/dL (3.5-5.0); ALKALINE PHOSPHATASE 101 U/L (38-126); ANION GAP 10 (5-19); ASPARTATE AMINO TRANSFERASE 96 U/L (17-59); BILIRUBIN,DIRECT 0.5 mg/dL (0.0-0.4); BILIRUBIN,TOTAL 1.5 mg/dL (0.2-1.3); BLOOD UREA NITROGEN 9 mg/dL (7-20); CALCIUM 9.6 mg/dL (8.4-10.2); CARBON DIOXIDE 27 mmol/L (22-30); CHLORIDE 101 mmol/L (98-107); CREATINE KINASE 93 U/L (55-170); GLUCOSE 94 mg/dL (75-110); POTASSIUM 3.6 mmol/L (3.6-5.0); TOTAL PROTEIN 8.3 g/dL (6.3-8.2)
[2020-03-27 10:07] LABS: CREATINE KINASE MB 2.49 ng/mL (<4.55); TROPONIN I 0.181 ng/mL
[2020-03-27] MEDS: LEVOFLOXACIN 750 MG/D5W RTU 750 MG/150 ML RTUPB IV SCH (17:16)
--- NOTE | 2020-03-27 21:27 | PDOC PROGRESS REPORT ---
Subjective Progress Note for:: 03/27/20 Subjective:: Patient seen by the bedside, is complaining of back pain, the opioid dosages he claimed is taking could not be reconciled by the pharmacist Reason For Visit: PNEUMONIA Physical Exam Vital Signs: Temp Pulse Resp BP Pulse Ox 99.1 F 103 H 20 149/93 H 100 03/27/20 19:40 03/27/20 19:40 03/27/20 19:40 03/27/20 19:40 03/27/20 19:40 Intake & Output 03/26/20 03/27/20 03/28/20 06:59 06:59 06:59 Intake Total 3040 768 Output Total 750 1350 Balance 2290 -582 Weight 96.8 kg General appearance: PRESENT: no acute distress Eye exam: PRESENT: PERRLA Respiratory exam: PRESENT: clear to auscultation patricia Cardiovascular exam: PRESENT: +S1, +S2 GI/Abdominal exam: PRESENT: soft Neurological exam: PRESENT: alert Results Laboratory Results: 03/27/20 08:35 03/27/20 08:35 03/27/20 03/27/20 03/27/20 02:45 08:35 08:35 WBC 10.9 H RBC 4.60 Hgb 13.3 L Hct 37.7 L MCV 82 MCH 29.0 MCHC 35.4 RDW 12.6 Plt Count 194 Seg Neutrophils % 68.2 Sodium 137.7 Potassium 3.6 Chloride 101 Carbon Dioxide 27 Anion Gap 10 BUN 9 Creatinine 0.96 Est GFR ( Amer) > 60 Glucose 94 Calcium 9.6 Total Bilirubin 1.5 H AST 96 H Alkaline Phosphatase 101 Total Protein 8.3 H Albumin 3.8 Urine Color YELLOW Urine Appearance CLEAR Urine pH 8.0 Ur Specific [place] 1.028 Urine Protein NEGATIVE Urine Glucose (UA) NEGATIVE Urine Ketones NEGATIVE Urine Blood NEGATIVE Urine Nitrite NEGATIVE Ur Leukocyte Esterase NEGATIVE Urine RBC (Auto) 0 03/26/20 03/26/20 03/26/20 13:10 17:37 17:37 Creatine Kinase 108 CK-MB (CK-2) 3.97 Troponin I 0.019 0.128 NT-Pro-B Natriuret Pep 88 03/26/20 03/26/20 03/27/20 19:32 19:32 01:49 Creatine Kinase 116 110 CK-MB (CK-2) 4.74 H Troponin I 0.161 NT-Pro-B Natriuret Pep 03/27/20 03/27/20 03/27/20 01:49 08:35 08:35 Creatine Kinase 93 CK-MB (CK-2) 3.36 2.49 Troponin I 0.265 0.181 NT-Pro-B Natriuret Pep Impressions: Chest/Abdomen CTA 03/26/20 00:00 IMPRESSION: 1. No pulmonary embolus. 2. Scattered patchy bilateral airspace opacities. Commonly reported imaging features of viral pneumonia are present. Other processes such as influenza pneumonia and organizing pneumonia, as can be seen with drug toxicity and connective tissue disease, can cause a similar imaging pattern. [PneTyp] Reference: https://pubs.rsna.org/doi/full/10.1148/ryct.0707480448 3. 5 mm left solid pulmonary nodule. No routine follow-up imaging is recommended. These guidelines do not apply to immunocompromised patients and patients with cancer. Follow up in patients with significant comorbidities as clinically warranted. For lung cancer screening, adhere to Lung-RADS guidelines. Reference: Radiology. 2017; 284(1):228-43. This exam was performed according to our departmental dose-optimization program, which includes automated exposure control, adjustment of the mA and/or kV according to patient size and/or use of iterative reconstruction technique. Chest X-Ray 03/26/20 13:25 IMPRESSION: Bibasilar infiltrates right greater than left. Findings are most consistent with pneumonia. Assessment & Plan - Diagnosis (1) Pneumonia Qualifiers: Pneumonia type: due to unspecified organism Laterality: bilateral Lung location: lower lobe of lung Qualified Code(s): J18.9 - Pneumonia, unspecified organism Is this a current diagnosis for this admission?: Yes Plan: Continue IV antibiotic for community-acquired pneumonia, (2) Elevated troponin Is this a current diagnosis for this admission?: Yes Plan: This is probably related to infection he has low-grade temperature continue present Lovenox coverage (3) Person under investigation for COVID-19 Is this a current diagnosis for this admission?: Yes Plan: The result of SARS-CoV-2 testing pending - Time Time Spent with patient: 35 or more minutes Level of Care: IMCU Medications reviewed and adjusted accordingly: Yes Anticipated discharge: Home Anticipated DC Timeframe: within 72 hours - Plan Summary Plan Summary: Oxycodone 10 mg p.o. every 6 as needed for back pain, atorvastatin for cholesterol metoprolol beta-dania
[2020-03-27] MEDS: ATORVASTATIN CALCIUM 40 MG TABLET PO SCH (21:55)
[2020-03-27] MEDS: METOPROLOL SUCCINATE 50 MG TAB.SR.24H PO SCH (21:55)
[2020-03-28] MEDS: OXYCODONE HCL IR 5 MG TABLET PO PRN ×4 (00:21→21:19)
[2020-03-28] MEDS: ENOXAPARIN SODIUM INJ 100 MG/1 ML DISP.SYRIN SUBCUT SCH ×2 (05:28→17:47)
[2020-03-28 05:35] LABS: ABSOLUTE EOSINOPHILS # (AUTO) 0.1 10^3/uL (0.0-0.6); ABSOLUTE LYMPHOCYTES (AUTO) 1.8 10^3/uL (0.5-4.7); ABSOLUTE MONOCYTES (AUTO) 1.4 10^3/uL (0.1-1.4); ABSOLUTE NEUT (AUTO) 8.7 10^3/uL (1.7-8.2); BASOPHILS % (AUTO) 0.4 % (0-2); EOSINOPHILS % (AUTO) 0.6 % (0-6); HEMATOCRIT 43.1 % (37.9-51.0); HEMOGLOBIN 15.2 g/dL (13.5-17.0); LYMPHOCYTES % (AUTO) 14.9 % (13-45); MEAN CORPUSCULAR HEMOGLOBIN 28.3 pg (27.0-33.4); MEAN CORPUSCULAR HGB CONC 35.2 g/dL (32.0-36.0); MEAN CORPUSCULAR VOLUME 81 fl (80-97); MONOCYTES % (AUTO) 11.9 % (3-13); PLATELET COUNT 226 10^3/uL (150-450); RED BLOOD COUNT 5.35 10^6/uL (4.35-5.55); RED CELL DISTRIBUTION WIDTH 12.7 % (11.5-14.0); SEGMENTED NEUTROPHILS % (AUTO) 72.2 % (42-78); TOTAL CELLS COUNTED % (AUTO) 100 %; WHITE BLOOD COUNT 12.1 10^3/uL (4.0-10.5)
[2020-03-28 05:44] LABS: ALKALINE PHOSPHATASE 100 U/L (38-126); ANION GAP 9 (5-19); ASPARTATE AMINO TRANSFERASE 95 U/L (17-59); BILIRUBIN,DIRECT 0.4 mg/dL (0.0-0.4); BILIRUBIN,TOTAL 1.4 mg/dL (0.2-1.3); BLOOD UREA NITROGEN 10 mg/dL (7-20); CALCIUM 9.6 mg/dL (8.4-10.2); CARBON DIOXIDE 26 mmol/L (22-30); CHLORIDE 104 mmol/L (98-107); GLUCOSE 98 mg/dL (75-110); POTASSIUM 3.6 mmol/L (3.6-5.0); TOTAL PROTEIN 9.2 g/dL (6.3-8.2)
[2020-03-28 06:12] LABS: APPEARANCE,URINE CLEAR; BILIRUBIN,URINE NEGATIVE (NEGATIVE); COLOR,URINE YELLOW; GLUCOSE, URINE NEGATIVE (NEGATIVE); KETONES,URINE NEGATIVE (NEGATIVE); LEUKOCYTE ESTERASE,URINE NEGATIVE (NEGATIVE); NITRITE,URINE NEGATIVE (NEGATIVE); PROTEIN,URINE NEGATIVE (NEGATIVE); URINE SPECIFIC GRAVITY 1.011; UROBILINOGEN,URINE NEGATIVE mg/dL (<2.0)
[2020-03-28] MEDS: RINGERS SOLUTION,LACTATED 1,000 ML IV PRN (06:53)
[2020-03-28] MEDS ORDERED: REMDESIVIR (EUA) 200 MG in NORMAL SALINE 250 ML IV ONE (10:00)
[2020-03-28] MEDS: METOPROLOL SUCCINATE 50 MG TAB.SR.24H PO SCH (11:11)
[2020-03-28] MEDS: CLOPIDOGREL BISULFATE 75 MG TABLET PO SCH (11:11)
[2020-03-28] MEDS: DEXAMETHASONE SOD PHOS INJ 10 MG/1 ML VIAL IV SCH (11:12)
[2020-03-28] MEDS: CEFEPIME HCL 2 GM in DEXTROSE 5%-WATER 50 ML IV SCH ×2 (11:12→21:19)
--- NOTE | 2020-03-28 20:53 | PDOC PROGRESS REPORT ---
Subjective Progress Note for:: 03/28/20 Subjective:: Patient seen by the bedside, SARS-CoV-2 test was positive Reason For Visit: PNEUMONIA Physical Exam Vital Signs: Temp Pulse Resp BP Pulse Ox 97.6 F 97 16 152/85 H 100 03/28/20 20:24 03/28/20 20:24 03/28/20 20:24 03/28/20 20:24 03/28/20 20:24 Intake & Output 03/27/20 03/28/20 03/29/20 06:59 06:59 06:59 Intake Total 3040 1768 1238 Output Total 750 2000 1100 Balance 2290 -232 138 Weight 96.8 kg 96.8 kg General appearance: PRESENT: no acute distress Eye exam: PRESENT: PERRLA Respiratory exam: PRESENT: clear to auscultation patricia Cardiovascular exam: PRESENT: +S1, +S2 GI/Abdominal exam: PRESENT: soft Neurological exam: PRESENT: alert Results Laboratory Results: 03/28/20 04:40 03/28/20 04:40 03/28/20 03/28/20 03/28/20 04:40 04:40 05:36 WBC 12.1 H RBC 5.35 Hgb 15.2 Hct 43.1 MCV 81 MCH 28.3 MCHC 35.2 RDW 12.7 Plt Count 226 Seg Neutrophils % 72.2 Sodium 139.3 Potassium 3.6 Chloride 104 Carbon Dioxide 26 Anion Gap 9 BUN 10 Creatinine 0.78 Est GFR ( Amer) > 60 Glucose 98 Calcium 9.6 Total Bilirubin 1.4 H AST 95 H Alkaline Phosphatase 100 Total Protein 9.2 H Albumin 4.0 Urine Color YELLOW Urine Appearance CLEAR Urine pH 7.0 Ur Specific [place] 1.011 Urine Protein NEGATIVE Urine Glucose (UA) NEGATIVE Urine Ketones NEGATIVE Urine Blood NEGATIVE Urine Nitrite NEGATIVE Ur Leukocyte Esterase NEGATIVE Urine WBC (Auto) 0 Urine RBC (Auto) 0 03/26/20 17:45 Clean Catch Midstream Urine Culture - Final NO GROWTH 2 DAYS 03/26/20 03/26/20 03/26/20 13:10 17:37 17:37 Creatine Kinase 108 CK-MB (CK-2) 3.97 Troponin I 0.019 0.128 NT-Pro-B Natriuret Pep 88 03/26/20 03/26/20 03/27/20 19:32 19:32 01:49 Creatine Kinase 116 110 CK-MB (CK-2) 4.74 H Troponin I 0.161 NT-Pro-B Natriuret Pep 03/27/20 03/27/20 03/27/20 01:49 08:35 08:35 Creatine Kinase 93 CK-MB (CK-2) 3.36 2.49 Troponin I 0.265 0.181 NT-Pro-B Natriuret Pep Impressions: Chest/Abdomen CTA 03/26/20 00:00 IMPRESSION: 1. No pulmonary embolus. 2. Scattered patchy bilateral airspace opacities. Commonly reported imaging features of viral pneumonia are present. Other processes such as influenza pneumonia and organizing pneumonia, as can be seen with drug toxicity and connective tissue disease, can cause a similar imaging pattern. [PneTyp] Reference: https://pubs.rsna.org/doi/full/10.1148/ryct.0430952500 3. 5 mm left solid pulmonary nodule. No routine follow-up imaging is recommended. These guidelines do not apply to immunocompromised patients and patients with cancer. Follow up in patients with significant comorbidities as clinically warranted. For lung cancer screening, adhere to Lung-RADS guidelines. Reference: Radiology. 2017; 284(1):228-43. This exam was performed according to our departmental dose-optimization program, which includes automated exposure control, adjustment of the mA and/or kV according to patient size and/or use of iterative reconstruction technique. Chest X-Ray 03/26/20 13:25 IMPRESSION: Bibasilar infiltrates right greater than left. Findings are most consistent with pneumonia. Assessment & Plan - Diagnosis (1) Pneumonia due to COVID-19 virus Is this a current diagnosis for this admission?: Yes Plan: He has COVID-19 positive test (U07.1, COVID-19) with Acute Pneumonia (J12.89, Other viral pneumonia) (If respiratory failure or sepsis present, add as separate assessment) , Patient will be started on remdesivir, dexamethasone intravenously, He will receive remdesivir for 5 days, dexamethasone for 10 days (2) Pneumonia Qualifiers: Pneumonia type: due to unspecified organism Laterality: bilateral Lung location: lower lobe of lung Qualified Code(s): J18.9 - Pneumonia, unspecified organism Is this a current diagnosis for this admission?: Yes Plan: Continue IV antibiotic for community-acquired pneumonia, (3) Elevated troponin Is this a current diagnosis for this admission?: Yes Plan: This is probably related to Covid - Time Time Spent with patient: 25-34 minutes Level of Care: IMCU Medications reviewed and adjusted accordingly: Yes Anticipated discharge: Home
[2020-03-28] MEDS: ATORVASTATIN CALCIUM 40 MG TABLET PO SCH (21:19)
[2020-03-28] MEDS ORDERED: LEVOFLOXACIN 750 MG TABLET PO SCH (22:00)
[2020-03-28] MEDS: ENOXAPARIN SODIUM INJ 40 MG/0.4 ML DISP.SYRIN SUBCUT SCH (22:05)
[2020-03-29] MEDS: OXYCODONE HCL IR 5 MG TABLET PO PRN ×4 (03:56→22:22)
[2020-03-29 03:59] LABS: APPEARANCE,URINE CLEAR; BILIRUBIN,URINE NEGATIVE (NEGATIVE); COLOR,URINE YELLOW; GLUCOSE, URINE NEGATIVE (NEGATIVE); KETONES,URINE NEGATIVE (NEGATIVE); LEUKOCYTE ESTERASE,URINE NEGATIVE (NEGATIVE); NITRITE,URINE NEGATIVE (NEGATIVE); PROTEIN,URINE NEGATIVE (NEGATIVE); URINE SPECIFIC GRAVITY 1.016; UROBILINOGEN,URINE NEGATIVE mg/dL (<2.0)
[2020-03-29] MEDS: RINGERS SOLUTION,LACTATED 1,000 ML IV PRN ×2 (04:00→22:31)
[2020-03-29] MEDS: VALSARTAN 160 MG TABLET PO SCH ×2 (04:18→10:18)
[2020-03-29 06:47] LABS: ABSOLUTE LYMPHOCYTES (AUTO) 2.3 10^3/uL (0.5-4.7); ABSOLUTE MONOCYTES (AUTO) 1.2 10^3/uL (0.1-1.4); ABSOLUTE NEUT (AUTO) 10.6 10^3/uL (1.7-8.2); BASOPHILS % (AUTO) 0.2 % (0-2); EOSINOPHILS % (AUTO) 0.1 % (0-6); HEMOGLOBIN 15.1 g/dL (13.5-17.0); MEAN CORPUSCULAR HEMOGLOBIN 28.4 pg (27.0-33.4); MEAN CORPUSCULAR VOLUME 79 fl (80-97); MONOCYTES % (AUTO) 8.4 % (3-13); PLATELET COUNT 256 10^3/uL (150-450); RED BLOOD COUNT 5.32 10^6/uL (4.35-5.55); RED CELL DISTRIBUTION WIDTH 12.9 % (11.5-14.0); SEGMENTED NEUTROPHILS % (AUTO) 75.3 % (42-78); TOTAL CELLS COUNTED % (AUTO) 100 %; WHITE BLOOD COUNT 14.1 10^3/uL (4.0-10.5)
[2020-03-29 07:03] LABS: ALBUMIN 3.8 g/dL (3.5-5.0); ALKALINE PHOSPHATASE 88 U/L (38-126); ANION GAP 12 (5-19); ASPARTATE AMINO TRANSFERASE 59 U/L (17-59); BILIRUBIN,DIRECT 0.1 mg/dL (0.0-0.4); BILIRUBIN,TOTAL 0.8 mg/dL (0.2-1.3); BLOOD UREA NITROGEN 13 mg/dL (7-20); CALCIUM 9.4 mg/dL (8.4-10.2); CARBON DIOXIDE 23 mmol/L (22-30); CHLORIDE 105 mmol/L (98-107); GLUCOSE 112 mg/dL (75-110); POTASSIUM 3.6 mmol/L (3.6-5.0); TOTAL PROTEIN 8.7 g/dL (6.3-8.2)
[2020-03-29] MEDS ORDERED: ONDANSETRON HCL INJ/PF 4 MG/2 ML SDV IV PRN (09:14)
[2020-03-29] MEDS: REMDESIVIR (EUA) 100 MG in NORMAL SALINE 250 ML IV SCH (10:15)
[2020-03-29] MEDS: ENOXAPARIN SODIUM INJ 40 MG/0.4 ML DISP.SYRIN SUBCUT SCH (10:15)
[2020-03-29] MEDS: CLOPIDOGREL BISULFATE 75 MG TABLET PO SCH (10:16)
[2020-03-29] MEDS: METOPROLOL SUCCINATE 50 MG TAB.SR.24H PO SCH (10:16)
[2020-03-29] MEDS: CEFEPIME HCL 2 GM in DEXTROSE 5%-WATER 50 ML IV SCH (10:22)
[2020-03-29] MEDS: DEXAMETHASONE SOD PHOS INJ 10 MG/1 ML VIAL IV SCH (10:43)
[2020-03-29] MEDS ORDERED: VANCOMYCIN HCL 0 MG in DEXTROSE 5%-WATER 250 ML IV NR (12:15)
--- NOTE | 2020-03-29 13:15 | PDOC PROGRESS REPORT ---
Subjective Progress Note for:: 03/29/20 Subjective:: Patient seen by the bedside, he has MRSA pneumonia, Covid pneumonia, he complained of chest pain, the troponin was elevated but is now trending down. He also complained of back pain. Reason For Visit: PNEUMONIA Physical Exam Vital Signs: Temp Pulse Resp BP Pulse Ox 98.5 F 86 22 H 148/90 H 100 03/29/20 11:22 03/29/20 11:22 03/29/20 11:22 03/29/20 11:22 03/29/20 11:22 Intake & Output 03/28/20 03/29/20 03/30/20 06:59 06:59 05:59 Intake Total 1768 3008 526 Output Total 2000 2500 900 Balance -232 508 -374 Weight 96.8 kg 93.4 kg General appearance: PRESENT: no acute distress Eye exam: PRESENT: PERRLA Respiratory exam: PRESENT: rhonchi Cardiovascular exam: PRESENT: +S1, +S2 GI/Abdominal exam: PRESENT: soft Neurological exam: PRESENT: alert, CN II-XII grossly intact Results Laboratory Results: 03/29/20 06:40 03/29/20 06:40 03/29/20 03/29/20 03/29/20 03:43 06:40 06:40 WBC 14.1 H RBC 5.32 Hgb 15.1 Hct 42.0 MCV 79 L MCH 28.4 MCHC 36.0 RDW 12.9 Plt Count 256 Seg Neutrophils % 75.3 Sodium 139.9 Potassium 3.6 Chloride 105 Carbon Dioxide 23 Anion Gap 12 BUN 13 Creatinine 0.74 Est GFR ( Amer) > 60 Glucose 112 H Calcium 9.4 Total Bilirubin 0.8 AST 59 Alkaline Phosphatase 88 Total Protein 8.7 H Albumin 3.8 Urine Color YELLOW Urine Appearance CLEAR Urine pH 6.0 Ur Specific [place] 1.016 Urine Protein NEGATIVE Urine Glucose (UA) NEGATIVE Urine Ketones NEGATIVE Urine Blood NEGATIVE Urine Nitrite NEGATIVE Ur Leukocyte Esterase NEGATIVE Urine WBC (Auto) 0 Urine RBC (Auto) 0 03/27/20 09:37 Sputum Gram Stain - Final 03/27/20 09:37 Sputum Sputum Culture - Final Mrsa (Meth Resis Staph Aureus) Greatly Reduced Normal Lindsay 03/26/20 17:45 Clean Catch Midstream Urine Culture - Final NO GROWTH 2 DAYS 03/26/20 03/26/20 03/26/20 13:10 17:37 17:37 Creatine Kinase 108 CK-MB (CK-2) 3.97 Troponin I 0.019 0.128 NT-Pro-B Natriuret Pep 88 03/26/20 03/26/20 03/27/20 19:32 19:32 01:49 Creatine Kinase 116 110 CK-MB (CK-2) 4.74 H Troponin I 0.161 NT-Pro-B Natriuret Pep 03/27/20 03/27/20 03/27/20 01:49 08:35 08:35 Creatine Kinase 93 CK-MB (CK-2) 3.36 2.49 Troponin I 0.265 0.181 NT-Pro-B Natriuret Pep Impressions: Chest/Abdomen CTA 03/26/20 00:00 IMPRESSION: 1. No pulmonary embolus. 2. Scattered patchy bilateral airspace opacities. Commonly reported imaging features of viral pneumonia are present. Other processes such as influenza pneumonia and organizing pneumonia, as can be seen with drug toxicity and connective tissue disease, can cause a similar imaging pattern. [PneTyp] Reference: https://pubs.rsna.org/doi/full/10.1148/ryct.3944210404 3. 5 mm left solid pulmonary nodule. No routine follow-up imaging is recommended. These guidelines do not apply to immunocompromised patients and patients with cancer. Follow up in patients with significant comorbidities as clinically warranted. For lung cancer screening, adhere to Lung-RADS guidelines. Reference: Radiology. 2017; 284(1):228-43. This exam was performed according to our departmental dose-optimization program, which includes automated exposure control, adjustment of the mA and/or kV according to patient size and/or use of iterative reconstruction technique. Chest X-Ray 03/26/20 13:25 IMPRESSION: Bibasilar infiltrates right greater than left. Findings are most consistent with pneumonia. Assessment & Plan - Diagnosis (1) Pneumonia due to COVID-19 virus Is this a current diagnosis for this admission?: Yes Plan: He will continue remdesivir for a total of 5 days, intravenous dexamethasone for a total of 10 days (2) Pneumonia Qualifiers: Pneumonia type: due to unspecified organism Laterality: bilateral Lung location: lower lobe of lung Qualified Code(s): J18.9 - Pneumonia, unspecified organism Is this a current diagnosis for this admission?: Yes (3) Elevated troponin Is this a current diagnosis for this admission?: Yes (4) MRSA (methicillin resistant staphylococcus aureus) pneumonia Qualifiers: Laterality: unspecified laterality Lung location: unspecified part of lung Qualified Code(s): J15.212 - Pneumonia due to Methicillin resistant Staphylococcus aureus Is this a current diagnosis for this admission?: Yes Plan: The sputum was positive for MRSA, discontinue cefepime and Levaquin start vancomycin ,pharmacy to dose - Time Time Spent with patient: 35 or more minutes Level of Care: IMCU Medications reviewed and adjusted accordingly: Yes Anticipated discharge: Home Anticipated DC Timeframe: within 72 hours - Inpatient Certification Based on my medical assessment, after consideration of the patient's comorbidities, presenting symptoms, or acuity I expect that the services needed warrant INPATIENT care.: Yes I certify that my determination is in accordance with my understanding of Medicare's requirements for reasonable and necessary INPATIENT services [42 CFR 412.3e].: Yes
[2020-03-29] MEDS: VANCOMYCIN HCL 1,250 MG in DEXTROSE 5%-WATER 250 ML IV SCH (17:08)
[2020-03-29] MEDS ORDERED: CLONIDINE HCL 0.2 MG TABLET PO ONE (21:30)
[2020-03-29] MEDS: ATORVASTATIN CALCIUM 40 MG TABLET PO SCH (22:23)
[2020-03-30] MEDS: VANCOMYCIN HCL 1,250 MG in DEXTROSE 5%-WATER 250 ML IV SCH ×3 (02:59→22:16)
[2020-03-30] MEDS: OXYCODONE HCL IR 5 MG TABLET PO PRN ×3 (04:36→21:11)
[2020-03-30] MEDS: DEXAMETHASONE SOD PHOS INJ 10 MG/1 ML VIAL IV SCH (10:20)
[2020-03-30] MEDS: ENOXAPARIN SODIUM INJ 40 MG/0.4 ML DISP.SYRIN SUBCUT SCH (10:20)
[2020-03-30] MEDS: VALSARTAN 160 MG TABLET PO SCH (10:21)
[2020-03-30] MEDS: METOPROLOL SUCCINATE 50 MG TAB.SR.24H PO SCH (10:21)
[2020-03-30] MEDS: CLOPIDOGREL BISULFATE 75 MG TABLET PO SCH (10:21)
[2020-03-30] MEDS: REMDESIVIR (EUA) 100 MG in NORMAL SALINE 250 ML IV SCH (10:22)
--- NOTE | 2020-03-30 13:07 | PDOC PROGRESS REPORT ---
Subjective Progress Note for:: 03/30/20 Subjective:: Patient with Covid and MRSA pneumonia, the elevated troponin is most likely related to the infection. Reason For Visit: PNEUMONIA Physical Exam Vital Signs: Temp Pulse Resp BP Pulse Ox 98.2 F 87 18 122/75 98 03/30/20 11:14 03/30/20 11:14 03/30/20 11:14 03/30/20 11:14 03/30/20 11:14 Intake & Output 03/29/20 03/30/20 03/31/20 07:59 06:59 06:59 Intake Total 740 Output Total 950 Balance -210 Weight General appearance: PRESENT: no acute distress Eye exam: PRESENT: PERRLA Respiratory exam: PRESENT: clear to auscultation patricia Cardiovascular exam: PRESENT: +S1, +S2 GI/Abdominal exam: PRESENT: soft Neurological exam: PRESENT: alert, CN II-XII grossly intact Results Laboratory Results: 03/29/20 06:40 03/29/20 06:40 03/27/20 09:37 Sputum Gram Stain - Final 03/27/20 09:37 Sputum Sputum Culture - Final Mrsa (Meth Resis Staph Aureus) Greatly Reduced Normal Lindsay 03/26/20 03/26/20 03/26/20 13:10 17:37 17:37 Creatine Kinase 108 CK-MB (CK-2) 3.97 Troponin I 0.019 0.128 NT-Pro-B Natriuret Pep 88 03/26/20 03/26/20 03/27/20 19:32 19:32 01:49 Creatine Kinase 116 110 CK-MB (CK-2) 4.74 H Troponin I 0.161 NT-Pro-B Natriuret Pep 03/27/20 03/27/20 03/27/20 01:49 08:35 08:35 Creatine Kinase 93 CK-MB (CK-2) 3.36 2.49 Troponin I 0.265 0.181 NT-Pro-B Natriuret Pep Impressions: Chest/Abdomen CTA 03/26/20 00:00 IMPRESSION: 1. No pulmonary embolus. 2. Scattered patchy bilateral airspace opacities. Commonly reported imaging features of viral pneumonia are present. Other processes such as influenza pneumonia and organizing pneumonia, as can be seen with drug toxicity and connective tissue disease, can cause a similar imaging pattern. [PneTyp] Reference: https://pubs.rsna.org/doi/full/10.1148/ryct.3072775970 3. 5 mm left solid pulmonary nodule. No routine follow-up imaging is recommended. These guidelines do not apply to immunocompromised patients and patients with cancer. Follow up in patients with significant comorbidities as clinically warranted. For lung cancer screening, adhere to Lung-RADS guidelines. Reference: Radiology. 2017; 284(1):228-43. This exam was performed according to our departmental dose-optimization program, which includes automated exposure control, adjustment of the mA and/or kV according to patient size and/or use of iterative reconstruction technique. Chest X-Ray 03/26/20 13:25 IMPRESSION: Bibasilar infiltrates right greater than left. Findings are most consistent with pneumonia. Assessment & Plan - Diagnosis (1) Pneumonia due to COVID-19 virus Is this a current diagnosis for this admission?: Yes Plan: He will continue remdesivir for a total of 5 days, intravenous dexamethasone for a total of 10 days (2) Pneumonia Qualifiers: Pneumonia type: due to unspecified organism Laterality: bilateral Lung location: lower lobe of lung Qualified Code(s): J18.9 - Pneumonia, unspecified organism Is this a current diagnosis for this admission?: Yes (3) Elevated troponin Is this a current diagnosis for this admission?: Yes (4) MRSA (methicillin resistant staphylococcus aureus) pneumonia Qualifiers: Laterality: unspecified laterality Lung location: unspecified part of lung Qualified Code(s): J15.212 - Pneumonia due to Methicillin resistant Staphylococcus aureus Is this a current diagnosis for this admission?: Yes Plan: Continue vancomycin - Time Time Spent with patient: 35 or more minutes Level of Care: IMCU Medications reviewed and adjusted accordingly: Yes Anticipated discharge: Home Anticipated DC Timeframe: Other
[2020-03-30] MEDS: ATORVASTATIN CALCIUM 40 MG TABLET PO SCH (21:11)
[2020-03-30] MEDS: RINGERS SOLUTION,LACTATED 1,000 ML IV PRN (21:13)
[2020-03-30 22:14] LABS: VANCOMYCIN,TROUGH 8.2 ug/mL (5.0-20.0)
[2020-03-31] MEDS: OXYCODONE HCL IR 5 MG TABLET PO PRN ×2 (03:19→23:09)
[2020-03-31] MEDS: VANCOMYCIN HCL 1,250 MG in DEXTROSE 5%-WATER 250 ML IV SCH (05:48)
[2020-03-31 06:17] LABS: APPEARANCE,URINE CLEAR; BILIRUBIN,URINE NEGATIVE (NEGATIVE); COLOR,URINE STRAW; GLUCOSE, URINE NEGATIVE (NEGATIVE); KETONES,URINE NEGATIVE (NEGATIVE); LEUKOCYTE ESTERASE,URINE NEGATIVE (NEGATIVE); NITRITE,URINE NEGATIVE (NEGATIVE); PROTEIN,URINE NEGATIVE (NEGATIVE); URINE SPECIFIC GRAVITY 1.004; UROBILINOGEN,URINE NEGATIVE mg/dL (<2.0)
[2020-03-31] MEDS: CLOPIDOGREL BISULFATE 75 MG TABLET PO SCH (10:48)
[2020-03-31] MEDS: ENOXAPARIN SODIUM INJ 40 MG/0.4 ML DISP.SYRIN SUBCUT SCH (10:48)
[2020-03-31] MEDS: METOPROLOL SUCCINATE 50 MG TAB.SR.24H PO SCH (10:48)
[2020-03-31] MEDS: REMDESIVIR (EUA) 100 MG in NORMAL SALINE 250 ML IV SCH (10:49)
[2020-03-31] MEDS: VALSARTAN 160 MG TABLET PO SCH (10:51)
[2020-03-31] MEDS: DEXAMETHASONE SOD PHOSPHATE INJ 4 MG/1 ML VIAL IV SCH (10:57)
[2020-03-31] MEDS: DEXAMETHASONE SOD PHOS INJ 10 MG/1 ML VIAL IV SCH (11:08)
[2020-03-31 11:12] LABS: HEMATOCRIT 40.5 % (37.9-51.0); HEMOGLOBIN 14.5 g/dL (13.5-17.0); MEAN CORPUSCULAR HEMOGLOBIN 28.9 pg (27.0-33.4); MEAN CORPUSCULAR HGB CONC 35.8 g/dL (32.0-36.0); MEAN CORPUSCULAR VOLUME 81 fl (80-97); PLATELET COUNT 269 10^3/uL (150-450); RED BLOOD COUNT 5.02 10^6/uL (4.35-5.55); RED CELL DISTRIBUTION WIDTH 12.6 % (11.5-14.0); WHITE BLOOD COUNT 12.9 10^3/uL (4.0-10.5)
[2020-03-31] MEDS: VANCOMYCIN HCL 1,500 MG in DEXTROSE 5%-WATER 250 ML IV SCH ×2 (14:35→22:42)
[2020-03-31] MEDS: TAMSULOSIN HCL 0.4 MG CAP.SR.24H PO SCH (19:09)
[2020-03-31] MEDS: ATORVASTATIN CALCIUM 40 MG TABLET PO SCH (22:41)
[2020-04-01] MEDS: VANCOMYCIN HCL 1,500 MG in DEXTROSE 5%-WATER 250 ML IV SCH ×3 (06:31→22:35)
[2020-04-01] MEDS: RINGERS SOLUTION,LACTATED 1,000 ML IV PRN (06:31)
--- NOTE | 2020-04-01 08:59 | PDOC PROGRESS REPORT ---
Subjective Progress Note for:: 03/31/20 Subjective:: Patient reported breathing better. Occasional chills but no fever. No chest pain. No nausea, vomiting., abdominal pain or diarrhea. Reason For Visit: PNEUMONIA Physical Exam Vital Signs: Temp Pulse Resp BP Pulse Ox 98.4 F 87 20 131/79 H 100 03/31/20 16:04 03/31/20 16:04 03/31/20 16:04 03/31/20 16:04 03/31/20 16:04 Intake & Output 03/30/20 03/31/20 04/01/20 06:59 06:59 06:59 Intake Total 4300 500 Output Total 3700 Balance 600 500 Weight 93.1 kg General appearance: PRESENT: no acute distress Head exam: PRESENT: atraumatic, normocephalic Respiratory exam: PRESENT: clear to auscultation patricia Cardiovascular exam: PRESENT: RRR. ABSENT: diastolic murmur, rubs, systolic murmur GI/Abdominal exam: PRESENT: normal bowel sounds, soft. ABSENT: tenderness Extremities exam: ABSENT: pedal edema Neurological exam: PRESENT: alert, awake Psychiatric exam: ABSENT: agitated Skin exam: PRESENT: dry, warm Results Laboratory Results: 03/31/20 10:00 03/29/20 06:40 03/31/20 03/31/20 03/31/20 05:45 07:24 10:00 WBC Cancelled 12.9 H RBC Cancelled 5.02 Hgb Cancelled 14.5 Hct Cancelled 40.5 MCV Cancelled 81 MCH Cancelled 28.9 MCHC Cancelled 35.8 RDW Cancelled 12.6 Plt Count Cancelled 269 Urine Color STRAW Urine Appearance CLEAR Urine pH 7.0 Ur Specific [place] 1.004 Urine Protein NEGATIVE Urine Glucose (UA) NEGATIVE Urine Ketones NEGATIVE Urine Blood NEGATIVE Urine Nitrite NEGATIVE Ur Leukocyte Esterase NEGATIVE Urine RBC (Auto) 0 03/26/20 14:27 Blood Blood Culture - Final NO GROWTH IN 5 DAYS 03/26/20 13:10 Blood Blood Culture - Final NO GROWTH IN 5 DAYS 03/26/20 03/26/20 03/26/20 13:10 17:37 17:37 Creatine Kinase 108 CK-MB (CK-2) 3.97 Troponin I 0.019 0.128 NT-Pro-B Natriuret Pep 88 03/26/20 03/26/20 03/27/20 19:32 19:32 01:49 Creatine Kinase 116 110 CK-MB (CK-2) 4.74 H Troponin I 0.161 NT-Pro-B Natriuret Pep 03/27/20 03/27/20 03/27/20 01:49 08:35 08:35 Creatine Kinase 93 CK-MB (CK-2) 3.36 2.49 Troponin I 0.265 0.181 NT-Pro-B Natriuret Pep Impressions: Chest/Abdomen CTA 03/26/20 00:00 IMPRESSION: 1. No pulmonary embolus. 2. Scattered patchy bilateral airspace opacities. Commonly reported imaging features of viral pneumonia are present. Other processes such as influenza pneumonia and organizing pneumonia, as can be seen with drug toxicity and connective tissue disease, can cause a similar imaging pattern. [PneTyp] Reference: https://pubs.rsna.org/doi/full/10.1148/ryct.1467089863 3. 5 mm left solid pulmonary nodule. No routine follow-up imaging is recommended. These guidelines do not apply to immunocompromised patients and patients with cancer. Follow up in patients with significant comorbidities as clinically warranted. For lung cancer screening, adhere to Lung-RADS guidelines. Reference: Radiology. 2017; 284(1):228-43. This exam was performed according to our departmental dose-optimization program, which includes automated exposure control, adjustment of the mA and/or kV according to patient size and/or use of iterative reconstruction technique. Chest X-Ray 03/26/20 13:25 IMPRESSION: Bibasilar infiltrates right greater than left. Findings are most consistent with pneumonia. Assessment & Plan - Diagnosis (1) Pneumonia due to COVID-19 virus Is this a current diagnosis for this admission?: Yes Plan: Continue current therapeutic therapy. (2) MRSA (methicillin resistant staphylococcus aureus) pneumonia Qualifiers: Laterality: unspecified laterality Lung location: unspecified part of lung Qualified Code(s): J15.212 - Pneumonia due to Methicillin resistant Stap hylococcus aureus Is this a current diagnosis for this admission?: Yes Plan: Continue current antibiotic coverage. Blood culture no growth after adequate incubation period. (3) Chronic pain syndrome Is this a current diagnosis for this admission?: Yes Plan: Maintain on current pain management regimen. (4) Chronic use of opiate drug for therapeutic purpose Is this a current diagnosis for this admission?: Yes Plan: Maintain on current pain management regimen. - Time Time Spent with patient: 25-34 minutes Level of Care: IMCU Anticipated discharge: Home Anticipated DC Timeframe: within 72 hours - Inpatient Certification Based on my medical assessment, after consideration of the patient's comorbidities, presenting symptoms, or acuity I expect that the services needed warrant INPATIENT care.: Yes I certify that my determination is in accordance with my understanding of Medicare's requirements for reasonable and necessary INPATIENT services [42 CFR 412.3e].: Yes Medical Necessity: Significant Comorbidiites Make Outpatient Treatment Too Risky, Need Close Monitoring Due to Risk of Patient Decompensation, Need For IV Fluids, Need For Continuous Telemetry Monitoring, Need for Pain Control, Need for IV Antibiotics, Risk of Complication if Not Cared For in Hospital, Risk of Diagnosis Which Will Require Inpatient Eval/Care/Monitoring 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
[2020-04-01] MEDS: DEXAMETHASONE SOD PHOSPHATE INJ 4 MG/1 ML VIAL IV SCH (10:18)
[2020-04-01] MEDS: CLOPIDOGREL BISULFATE 75 MG TABLET PO SCH (10:19)
[2020-04-01] MEDS: METOPROLOL SUCCINATE 50 MG TAB.SR.24H PO SCH (10:19)
[2020-04-01] MEDS: ENOXAPARIN SODIUM INJ 40 MG/0.4 ML DISP.SYRIN SUBCUT SCH (10:19)
[2020-04-01] MEDS: OXYCODONE HCL IR 5 MG TABLET PO PRN ×2 (10:20→20:54)
[2020-04-01] MEDS: REMDESIVIR (EUA) 100 MG in NORMAL SALINE 250 ML IV SCH (10:25)
[2020-04-01] MEDS: VALSARTAN 160 MG TABLET PO SCH (10:45)
--- NOTE | 2020-04-01 17:32 | PDOC PROGRESS REPORT ---
Subjective Progress Note for:: 04/01/20 Subjective:: Patient reported breathing remain satisfactory and off supplemental oxygen support. No fever or chills. No chest pain. No nausea, vomiting., abdominal pain or diarrhea. Reason For Visit: PNEUMONIA Physical Exam Vital Signs: Temp Pulse Resp BP Pulse Ox 98.0 F 91 18 151/83 H 98 04/01/20 11:41 04/01/20 14:00 04/01/20 11:41 04/01/20 11:41 04/01/20 11:41 Intake & Output 03/31/20 04/01/20 04/02/20 06:59 06:59 06:59 Intake Total 4300 3966 990 Output Total 3700 3300 1100 Balance 600 666 -110 Weight 93.1 kg 93.1 kg Physical Exam: General appearance: PRESENT: no acute distress Head exam: PRESENT: atraumatic, normocephalic Respiratory exam: PRESENT: clear to auscultation patricia Cardiovascular exam: PRESENT: RRR. ABSENT: diastolic murmur, rubs, systolic murmur GI/Abdominal exam: PRESENT: normal bowel sounds, soft. ABSENT: tenderness Extremities exam: ABSENT: pedal edema Neurological exam: PRESENT: alert, awake Psychiatric exam: ABSENT: agitated Skin exam: PRESENT: dry, warm Results Laboratory Results: 03/31/20 10:00 03/29/20 06:40 03/26/20 14:27 Blood Blood Culture - Final NO GROWTH IN 5 DAYS 03/26/20 13:10 Blood Blood Culture - Final NO GROWTH IN 5 DAYS 03/26/20 03/26/20 03/26/20 13:10 17:37 17:37 Creatine Kinase 108 CK-MB (CK-2) 3.97 Troponin I 0.019 0.128 NT-Pro-B Natriuret Pep 88 03/26/20 03/26/20 03/27/20 19:32 19:32 01:49 Creatine Kinase 116 110 CK-MB (CK-2) 4.74 H Troponin I 0.161 NT-Pro-B Natriuret Pep 03/27/20 03/27/20 03/27/20 01:49 08:35 08:35 Creatine Kinase 93 CK-MB (CK-2) 3.36 2.49 Troponin I 0.265 0.181 NT-Pro-B Natriuret Pep Impressions: Chest/Abdomen CTA 03/26/20 00:00 IMPRESSION: 1. No pulmonary embolus. 2. Scattered patchy bilateral airspace opacities. Commonly reported imaging features of viral pneumonia are present. Other processes such as influenza pneumonia and organizing pneumonia, as can be seen with drug toxicity and connective tissue disease, can cause a similar imaging pattern. [PneTyp] Reference: https://pubs.rsna.org/doi/full/10.1148/ryct.0400451596 3. 5 mm left solid pulmonary nodule. No routine follow-up imaging is recommended. These guidelines do not apply to immunocompromised patients and patients with cancer. Follow up in patients with significant comorbidities as clinically warranted. For lung cancer screening, adhere to Lung-RADS guidelines. Reference: Radiology. 2017; 284(1):228-43. This exam was performed according to our departmental dose-optimization program, which includes automated exposure control, adjustment of the mA and/or kV according to patient size and/or use of iterative reconstruction technique. Chest X-Ray 03/26/20 13:25 IMPRESSION: Bibasilar infiltrates right greater than left. Findings are most consistent with pneumonia. Assessment & Plan - Diagnosis (1) Pneumonia due to COVID-19 virus Is this a current diagnosis for this admission?: Yes (2) MRSA (methicillin resistant staphylococcus aureus) pneumonia Qualifiers: Laterality: unspecified laterality Lung location: unspecified part of lung Qualified Code(s): J15.212 - Pneumonia due to Methicillin resistant Staphy lococcus aureus Is this a current diagnosis for this admission?: Yes (3) Chronic pain syndrome Is this a current diagnosis for this admission?: Yes (4) Chronic use of opiate drug for therapeutic purpose Is this a current diagnosis for this admission?: Yes - Time Time Spent with patient: 25-34 minutes Level of Care: IMCU Medications reviewed and adjusted accordingly: Yes Anticipated discharge: Home Anticipated DC Timeframe: within 72 hours - Inpatient Certification Based on my medical assessment, after consideration of the patient's comorbidities, presenting symptoms, or acuity I expect that the services needed warrant INPATIENT care.: Yes I certify that my determination is in accordance with my understanding of Medicare's requirements for reasonable and necessary INPATIENT services [42 CFR 412.3e].: Yes Medical Necessity: Significant Comorbidiites Make Outpatient Treatment Too Risky, Need Close Monitoring Due to Risk of Patient Decompensation, Need For IV Fluids, Need For Continuous Telemetry Monitoring, Need for IV Antibiotics, Risk of Complication if Not Cared For in Hospital, Risk of Diagnosis Which Will Require Inpatient Eval/Care/Monitoring Post Hospital Care: 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 Maintain on all other current medication management.
[2020-04-01] MEDS: TAMSULOSIN HCL 0.4 MG CAP.SR.24H PO SCH (19:04)
[2020-04-01] MEDS: ATORVASTATIN CALCIUM 40 MG TABLET PO SCH (22:18)
[2020-04-02 04:49] LABS: APPEARANCE,URINE CLEAR; BILIRUBIN,URINE NEGATIVE (NEGATIVE); COLOR,URINE YELLOW; GLUCOSE, URINE NEGATIVE (NEGATIVE); KETONES,URINE NEGATIVE (NEGATIVE); LEUKOCYTE ESTERASE,URINE NEGATIVE (NEGATIVE); NITRITE,URINE NEGATIVE (NEGATIVE); PROTEIN,URINE NEGATIVE (NEGATIVE); URINE SPECIFIC GRAVITY 1.013; UROBILINOGEN,URINE NEGATIVE mg/dL (<2.0)
[2020-04-02 05:54] LABS: HEMATOCRIT 40.8 % (37.9-51.0); HEMOGLOBIN 14.2 g/dL (13.5-17.0); MEAN CORPUSCULAR HGB CONC 34.7 g/dL (32.0-36.0); MEAN CORPUSCULAR VOLUME 81 fl (80-97); PLATELET COUNT 295 10^3/uL (150-450); RED BLOOD COUNT 5.05 10^6/uL (4.35-5.55); RED CELL DISTRIBUTION WIDTH 12.7 % (11.5-14.0)
[2020-04-02] MEDS: VANCOMYCIN HCL 1,500 MG in DEXTROSE 5%-WATER 250 ML IV SCH (05:56)
[2020-04-02] MEDS: RINGERS SOLUTION,LACTATED 1,000 ML IV PRN (05:56)
[2020-04-02 06:55] LABS: VANCOMYCIN,TROUGH 15.9 ug/mL (5.0-20.0)
[2020-04-02] MEDS: ENOXAPARIN SODIUM INJ 40 MG/0.4 ML DISP.SYRIN SUBCUT SCH (09:54)
[2020-04-02] MEDS: CLOPIDOGREL BISULFATE 75 MG TABLET PO SCH (09:55)
[2020-04-02] MEDS: METOPROLOL SUCCINATE 50 MG TAB.SR.24H PO SCH (09:55)
[2020-04-02] MEDS: VALSARTAN 160 MG TABLET PO SCH (09:55)
[2020-04-02] MEDS: DEXAMETHASONE SOD PHOSPHATE INJ 4 MG/1 ML VIAL IV SCH (09:55)
[2020-04-02] MEDS: OXYCODONE HCL IR 5 MG TABLET PO PRN ×3 (11:58→22:19)
[2020-04-02] MEDS: VANCOMYCIN HCL 2,000 MG in DEXTROSE 5%-WATER 500 ML IV SCH ×2 (14:09→22:20)
[2020-04-02] MEDS: TAMSULOSIN HCL 0.4 MG CAP.SR.24H PO SCH (17:36)
[2020-04-02] MEDS: ATORVASTATIN CALCIUM 40 MG TABLET PO SCH (22:19)
[2020-04-02] MEDS: SULFAMETHOXAZOLE/TRIMETHOPRIM 800-160 MG TABLET PO SCH (22:19)
[2020-04-03] MEDS: RINGERS SOLUTION,LACTATED 1,000 ML IV PRN (05:45)
[2020-04-03] MEDS: OXYCODONE HCL IR 5 MG TABLET PO PRN ×2 (05:45→17:11)
[2020-04-03] MEDS: VANCOMYCIN HCL 2,000 MG in DEXTROSE 5%-WATER 500 ML IV SCH (05:46)
--- NOTE | 2020-04-03 08:25 | PDOC PROGRESS REPORT ---
Subjective Progress Note for:: 04/02/20 Subjective:: Patient reported improvement in his breathing and remain off supplemental oxygen support. Coughing less without significant expectoration. No fever or chills. No chest pain. No nausea, vomiting, abdominal pain or diarrhea. Reason For Visit: PNEUMONIA Physical Exam Vital Signs: Temp Pulse Resp BP Pulse Ox 98.0 F 78 18 135/78 H 98 04/02/20 03:40 04/02/20 07:00 04/02/20 03:40 04/02/20 03:40 04/02/20 03:40 Intake & Output 04/01/20 04/02/20 04/03/20 06:59 06:59 06:59 Intake Total 3966 3200 250 Output Total 3300 2375 Balance 666 825 250 Weight 93.1 kg 93.1 kg Physical Exam: General appearance: PRESENT: no acute distress Head exam: PRESENT: atraumatic, normocephalic Respiratory exam: PRESENT: clear to auscultation patricia Cardiovascular exam: PRESENT: RRR. ABSENT: diastolic murmur, rubs, systolic murmur GI/Abdominal exam: PRESENT: normal bowel sounds, soft. ABSENT: tenderness Extremities exam: ABSENT: pedal edema Neurological exam: PRESENT: alert, awake Psychiatric exam: ABSENT: agitated Skin exam: PRESENT: dry, warm Results Laboratory Results: 04/02/20 04:45 04/02/20 04:45 04/02/20 04/02/20 04/02/20 04:27 04:45 04:45 WBC 18.0 H RBC 5.05 Hgb 14.2 Hct 40.8 MCV 81 MCH 28.0 MCHC 34.7 RDW 12.7 Plt Count 295 Creatinine 0.68 Est GFR ( Amer) > 60 Urine Color YELLOW Urine Appearance CLEAR Urine pH 6.0 Ur Specific [place] 1.013 Urine Protein NEGATIVE Urine Glucose (UA) NEGATIVE Urine Ketones NEGATIVE Urine Blood NEGATIVE Urine Nitrite NEGATIVE Ur Leukocyte Esterase NEGATIVE Urine WBC (Auto) 0 03/26/20 03/26/20 03/26/20 13:10 17:37 17:37 Creatine Kinase 108 CK-MB (CK-2) 3.97 Troponin I 0.019 0.128 NT-Pro-B Natriuret Pep 88 03/26/20 03/26/20 03/27/20 19:32 19:32 01:49 Creatine Kinase 116 110 CK-MB (CK-2) 4.74 H Troponin I 0.161 NT-Pro-B Natriuret Pep 03/27/20 03/27/20 03/27/20 01:49 08:35 08:35 Creatine Kinase 93 CK-MB (CK-2) 3.36 2.49 Troponin I 0.265 0.181 NT-Pro-B Natriuret Pep Impressions: Chest/Abdomen CTA 03/26/20 00:00 IMPRESSION: 1. No pulmonary embolus. 2. Scattered patchy bilateral airspace opacities. Commonly reported imaging features of viral pneumonia are present. Other processes such as influenza pneumonia and organizing pneumonia, as can be seen with drug toxicity and connective tissue disease, can cause a similar imaging pattern. [PneTyp] Reference: https://pubs.rsna.org/doi/full/10.1148/ryct.2907242319 3. 5 mm left solid pulmonary nodule. No routine follow-up imaging is recommended. These guidelines do not apply to immunocompromised patients and patients with cancer. Follow up in patients with significant comorbidities as clinically warranted. For lung cancer screening, adhere to Lung-RADS guidelines. Reference: Radiology. 2017; 284(1):228-43. This exam was performed according to our departmental dose-optimization program, which includes automated exposure control, adjustment of the mA and/or kV according to patient size and/or use of iterative reconstruction technique. Chest X-Ray 03/26/20 13:25 IMPRESSION: Bibasilar infiltrates right greater than left. Findings are most consistent with pneumonia. Assessment & Plan - Diagnosis (1) Pneumonia due to COVID-19 virus Is this a current diagnosis for this admission?: Yes (2) MRSA (methicillin resistant staphylococcus aureus) pneumonia Qualifiers: Laterality: unspecified laterality Lung location: unspecified part of lung Qualified Code(s): J15.212 - Pneumonia due to Methicillin resistant Staphylococcus aureus Is this a current diagnosis for this admission?: Yes (3) Chronic pain syndrome Is this a current diagnosis for this admission?: Yes (4) Chronic use of opiate drug for therapeutic purpose Is this a current diagnosis for this admission?: Yes - Time Time Spent with patient: 25-34 minutes Level of Care: IMCU Medications reviewed and adjusted accordingly: Yes Anticipated discharge: Home Anticipated DC Timeframe: within 72 hours - Inpatient Certification Based on my medical assessment, after consideration of the patient's comorbidities, presenting symptoms, or acuity I expect that the services needed warrant INPATIENT care.: Yes I certify that my determination is in accordance with my understanding of Medicare's requirements for reasonable and necessary INPATIENT services [42 CFR 412.3e].: Yes Medical Necessity: Significant Comorbidiites Make Outpatient Treatment Too Risky, Need Close Monitoring Due to Risk of Patient Decompensation, Need For IV Fluids, Need For Continuous Telemetry Monitoring, Need for IV Antibiotics, Risk of Complication if Not Cared For in Hospital, Risk of Diagnosis Which Will Requ yvonne Inpatient Eval/Care/Monitoring Post Hospital Care: D/C Unloading Checker Documentation - Plan Summary Plan Summary: Continue current medical management. Will d/c IV Vancomycin in am. Start Bactrim DS 1 tablet po bid from tomorrow.
[2020-04-03] MEDS: CLOPIDOGREL BISULFATE 75 MG TABLET PO SCH (09:11)
[2020-04-03] MEDS: ENOXAPARIN SODIUM INJ 40 MG/0.4 ML DISP.SYRIN SUBCUT SCH (09:11)
[2020-04-03] MEDS: SULFAMETHOXAZOLE/TRIMETHOPRIM 800-160 MG TABLET PO SCH ×2 (09:11→22:40)
[2020-04-03] MEDS: METOPROLOL SUCCINATE 50 MG TAB.SR.24H PO SCH (09:12)
[2020-04-03] MEDS: DEXAMETHASONE SOD PHOSPHATE INJ 4 MG/1 ML VIAL IV SCH (09:12)
[2020-04-03] MEDS: VALSARTAN 160 MG TABLET PO SCH (11:30)
--- NOTE | 2020-04-03 13:13 | PDOC PROGRESS REPORT ---
Subjective Progress Note for:: 04/03/20 Subjective:: Patient's breathing remain satisfactory and he is off supplemental oxygen support. No chest pain. No nausea, vomiting, abdominal pain or diarrhea. No fever or chills. Reason For Visit: PNEUMONIA Physical Exam Vital Signs: Temp Pulse Resp BP Pulse Ox 97.9 F 81 19 120/66 98 04/03/20 03:48 04/03/20 07:00 04/03/20 03:48 04/03/20 03:48 04/03/20 03:48 Intake & Output 04/02/20 04/03/20 04/04/20 06:59 06:59 06:59 Intake Total 3200 4427 Output Total 2375 2770 Balance 825 1657 Weight 93.1 kg 92.8 kg Physical Exam: General appearance: PRESENT: no acute distress Head exam: PRESENT: atraumatic, normocephalic Respiratory exam: PRESENT: clear to auscultation patricia Cardiovascular exam: PRESENT: RRR. ABSENT: diastolic murmur, rubs, systolic murmur GI/Abdominal exam: PRESENT: normal bowel sounds, soft. ABSENT: tenderness Extremities exam: ABSENT: pedal edema Neurological exam: PRESENT: alert, awake Psychiatric exam: ABSENT: agitated Skin exam: PRESENT: dry, warm Results Laboratory Results: 04/02/20 04:45 04/02/20 04:45 03/26/20 03/26/20 03/26/20 13:10 17:37 17:37 Creatine Kinase 108 CK-MB (CK-2) 3.97 Troponin I 0.019 0.128 NT-Pro-B Natriuret Pep 88 03/26/20 03/26/20 03/27/20 19:32 19:32 01:49 Creatine Kinase 116 110 CK-MB (CK-2) 4.74 H Troponin I 0.161 NT-Pro-B Natriuret Pep 03/27/20 03/27/20 03/27/20 01:49 08:35 08:35 Creatine Kinase 93 CK-MB (CK-2) 3.36 2.49 Troponin I 0.265 0.181 NT-Pro-B Natriuret Pep Impressions: Chest/Abdomen CTA 03/26/20 00:00 IMPRESSION: 1. No pulmonary embolus. 2. Scattered patchy bilateral airspace opacities. Commonly reported imaging features of viral pneumonia are present. Other processes such as influenza pneumonia and organizing pneumonia, as can be seen with drug toxicity and connective tissue disease, can cause a similar imaging pattern. [PneTyp] Reference: https://pubs.rsna.org/doi/full/10.1148/ryct.6732807015 3. 5 mm left solid pulmonary nodule. No routine follow-up imaging is recommended. These guidelines do not apply to immunocompromised patients and patients with cancer. Follow up in patients with significant comorbidities as clinically warranted. For lung cancer screening, adhere to Lung-RADS guidelines. Reference: Radiology. 2017; 284(1):228-43. This exam was performed according to our departmental dose-optimization program, which includes automated exposure control, adjustment of the mA and/or kV according to patient size and/or use of iterative reconstruction technique. Chest X-Ray 03/26/20 13:25 IMPRESSION: Bibasilar infiltrates right greater than left. Findings are most consistent with pneumonia. Assessment & Plan - Diagnosis (1) Pneumonia due to COVID-19 virus Is this a current diagnosis for this admission?: Yes (2) MRSA (methicillin resistant staphylococcus aureus) pneumonia Qualifiers: Laterality: unspecified laterality Lung location: unspecified part of lung Qualified Code(s): J15.212 - Pneumonia due to Methicillin resistant Staphylococcus aureus Is this a current diagnosis for this admission?: Yes (3) Chronic pain syndrome Is this a current diagnosis for this admission?: Yes (4) Chronic use of opiate drug for therapeutic purpose Is this a current diagnosis for this admission?: Yes - Time Time Spent with patient: 25-34 minutes Level of Care: IMCU Medications reviewed and adjusted accordingly: Yes Anticipated discharge: Home Anticipated DC Timeframe: within 48 hours - Inpatient Certification Based on my medical assessment, after consideration of the patient's comorbidities, presenting symptoms, or acuity I expect that the services needed warrant INPATIENT care.: Yes I certify that my determination is in accordance with my understanding of Medicare's requirements for reasonable and necessary INPATIENT services [42 CFR 412.3e].: Yes Medical Necessity: Significant Comorbidiites Make Outpatient Treatment Too Risky, Need Close Monitoring Due to Risk of Patient Decompensation, Need For IV Fluids, Need For Continuous Telemetry Monitoring, Risk of Complication if Not Cared For in Hospital, Risk of Diagnosis Which Will Require Inpatient Eval/Care/Monitoring Post 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 Possible d/c home tomorrow. Instructed on contacting pain management team for appointment regarding opiate medication management.
[2020-04-03] MEDS: TAMSULOSIN HCL 0.4 MG CAP.SR.24H PO SCH (17:09)
[2020-04-03] MEDS: ATORVASTATIN CALCIUM 40 MG TABLET PO SCH (22:40)
[2020-04-04] MEDS: OXYCODONE HCL IR 5 MG TABLET PO PRN ×3 (04:33→16:06)
[2020-04-04 06:03] LABS: HEMATOCRIT 38.6 % (37.9-51.0); HEMOGLOBIN 13.8 g/dL (13.5-17.0); MEAN CORPUSCULAR HEMOGLOBIN 28.8 pg (27.0-33.4); MEAN CORPUSCULAR HGB CONC 35.8 g/dL (32.0-36.0); MEAN CORPUSCULAR VOLUME 80 fl (80-97); PLATELET COUNT 271 10^3/uL (150-450); RED BLOOD COUNT 4.81 10^6/uL (4.35-5.55); RED CELL DISTRIBUTION WIDTH 12.6 % (11.5-14.0); WHITE BLOOD COUNT 15.4 10^3/uL (4.0-10.5)
[2020-04-04] MEDS: SULFAMETHOXAZOLE/TRIMETHOPRIM 800-160 MG TABLET PO SCH (10:43)
[2020-04-04] MEDS: VALSARTAN 160 MG TABLET PO SCH (10:43)
[2020-04-04] MEDS: CLOPIDOGREL BISULFATE 75 MG TABLET PO SCH (10:43)
[2020-04-04] MEDS: METOPROLOL SUCCINATE 50 MG TAB.SR.24H PO SCH (10:43)
[2020-04-04] MEDS: DEXAMETHASONE SOD PHOSPHATE INJ 4 MG/1 ML VIAL IV SCH (10:43)
[2020-04-04] MEDS: ENOXAPARIN SODIUM INJ 40 MG/0.4 ML DISP.SYRIN SUBCUT SCH (10:44)
[2020-04-04] MEDS: TAMSULOSIN HCL 0.4 MG CAP.SR.24H PO SCH (17:02)
--- NOTE | 2020-04-04 17:09 | PDOC DISCHARGE SUMMARY ---
Impression - Admit/DC Date/PCP Admission Date/Primary Care Provider: 03/26/20 15:05 CARLY CAAL Discharge Date: 04/04/20 - Discharge Diagnosis (1) Pneumonia due to COVID-19 virus Is this a current diagnosis for this admission?: Yes (2) MRSA (methicillin resistant staphylococcus aureus) pneumonia Is this a current diagnosis for this admission?: Yes (3) Chronic pain syndrome Is this a current diagnosis for this admission?: Yes (4) Chronic use of opiate drug for therapeutic purpose Is this a current diagnosis for this admission?: Yes - Assessment Summary: Admitted for COVID-19 positive test status with breathing difficulty. He was tr eated with GDMT with improvement. His sputum culture grew MSRA for which he received IV Vancomycin and culture sensitivity directed oral Bactrim DS. He remain afebrile and off supplemental oxygen for more than 72 hours. He will be discharged home with Bactrim DS 1 tablet po bid x 7 days. He was instructed to remain in social isolation for 1 week and continue social distancing and use of face mask, hand washing, and avoidance of crowded areas. he will schedule appointment with [facility] for surgery pain management team for his chronic pain opiate prescription. He will be issued 30 tablets of oxycodone IR 10 mg po q4 hours prn for pain management. He will follow up in the office as instructed upon discharge. - Additional Information Resuscitation Status: Full Code Discharge Diet: Regular Discharge Activity: Activity As Tolerated - with COVID-19 precautions as noted. Referrals: CARLY CAAL MD [Primary Care Provider] - 04/15/20 1:00 pm (Dr. Caal will make the follow-up appointment.) Prescriptions: Valsartan [Diovan 160 mg Tablet] 320 mg PO DAILY #30 tablet Tamsulosin HCl [Flomax 0.4 mg Cap.sr] 0.4 mg PO PCSUPPER #30 cap.sr.24h Atorvastatin Calcium [Lipitor 40 mg Tablet] 40 mg PO QHS #30 tablet Oxycodone HCl/Acetaminophen [Oxycodone-Acetaminophen 10-325] 1 each PO TID PRN #30 tablet PRN Reason: Clopidogrel Bisulfate [Plavix 75 mg Tablet] 75 mg PO DAILY #30 tablet Sulfamethoxazole/Trimethoprim [Septra-Ds 800-160 mg Tablet] 1 tab PO Q12 #14 tablet Metoprolol Succinate [Toprol Xl 50 mg Tab.sr] 50 mg PO DAILY #30 tab.sr.24h Home Medications: Atorvastatin Calcium [Lipitor 40 mg Tablet] 40 mg PO QHS #30 tablet 04/04/20 Clopidogrel Bisulfate [Plavix 75 mg Tablet] 75 mg PO DAILY #30 tablet 04/04/20 Metoprolol Succinate [Toprol Xl 50 mg Tab.sr] 50 mg PO DAILY #30 tab.sr.24h 04/04/20 Oxycodone HCl/Acetaminophen [Oxycodone-Acetaminophen 10-325] 1 each PO TID PRN #30 tablet 04/04/20 Sulfamethoxazole/Trimethoprim [Septra-Ds 800-160 mg Tablet] 1 tab PO Q12 #14 tablet 04/04/20 Tamsulosin HCl [Flomax 0.4 mg Cap.sr] 0.4 mg PO PCSUPPER #30 cap.sr.24h 04/04/20 Valsartan [Diovan 160 mg Tablet] 320 mg PO DAILY #30 tablet 04/04/20 History of Present Illiness History of Present Illness: TAE HASKINS is a 59 year old male, Patient came to the emergency room for evaluation of respiratory symptoms, shortness of breath, fever and cough, he said he has the symptoms for the last 2 weeks, progressively getting worse. He denies any exposure to SARS-CoV-2 infection, he has no vomiting or diarrhea. In the emergency room he was evaluated because of concern for SARS-CoV-2 infection inpatient care was advised by the ED provider. CT angiogram of the chest was done, there was no pulmonary embolus there was groundglass opacities. Patient said he has chronic pain on OxyContin 60 mg p.o. twice daily and oxycodone 15 mg every 4 hours as needed, pharmacist reconciled the medication for the patient he told the pharmacist that he fills at [facility] a local pharmacy but the pharmacist said the last time he fills his medication was in 2019. He supposedly have history of ischemic heart disease with multiple stent placements patient have no record of medication that he takes on a consistent basis. Hospital Course Hospital Course: Admitted for COVID-19 positive test status with breathing difficulty. He was dao ated with GDMT with improvement. His sputum culture grew MSRA for which he received IV Vancomycin and culture sensitivity directed oral Bactrim DS. He remain afebrile and off supplemental oxygen for more than 72 hours. He will be discharged home with Bactrim DS 1 tablet po bid x 7 days. He was instructed to remain in social isolation for 1 week and continue social distancing and use of face mask, hand washing, and avoidance of crowded areas. he will schedule appointment with [facility] for surgery pain management team for his chronic pain opiate prescription. He will be issued 30 tablets of oxycodone IR 10 mg po q4 hours prn for pain management. He will follow up in the office as instructed upon discharge. Physical Exam Vital Signs: Temp Pulse Resp BP Pulse Ox 97.1 F 91 17 122/62 98 04/04/20 08:25 04/04/20 14:00 04/04/20 08:25 04/04/20 11:37 04/04/20 11:37 Intake & Output 04/03/20 04/04/20 04/05/20 06:59 06:59 06:59 Intake Total 4407 1847 Output Total 2770 1900 Balance 1657 -53 Weight 92.8 kg 92.5 kg General appearance: PRESENT: no acute distress Head exam: PRESENT: atraumatic, normocephalic Respiratory exam: PRESENT: clear to auscultation patricia Cardiovascular exam: PRESENT: RRR. ABSENT: diastolic murmur, rubs, systolic murmur GI/Abdominal exam: PRESENT: normal bowel sounds, soft. ABSENT: tenderness Extremities exam: ABSENT: pedal edema Neurological exam: PRESENT: alert, awake Psychiatric exam: ABSENT: agitated Skin exam: PRESENT: dry, warm Results Laboratory Results: WBC 15.4 10^3/uL (4.0-10.5) H 04/04/20 04:34 RBC 4.81 10^6/uL (4.35-5.55) 04/04/20 04:34 Hgb 13.8 g/dL (13.5-17.0) 04/04/20 04:34 Hct 38.6 % (37.9-51.0) 04/04/20 04:34 MCV 80 fl (80-97) 04/04/20 04:34 MCH 28.8 pg (27.0-33.4) 04/04/20 04:34 MCHC 35.8 g/dL (32.0-36.0) 04/04/20 04:34 RDW 12.6 % (11.5-14.0) 04/04/20 04:34 Plt Count 271 10^3/uL (150-450) 04/04/20 04:34 Lymph % (Auto) 16.0 % (13-45) 03/29/20 06:40 [place] % (Auto) 8.4 % (3-13) 03/29/20 06:40 Eos % (Auto) 0.1 % (0-6) 03/29/20 06:40 Baso % (Auto) 0.2 % (0-2) 03/29/20 06:40 Absolute Neuts (auto) 10.6 10^3/uL (1.7-8.2) H 03/29/20 06:40 Absolute Lymphs (auto) 2.3 10^3/uL (0.5-4.7) 03/29/20 06:40 Absolute Monos (auto) 1.2 10^3/uL (0.1-1.4) 03/29/20 06:40 Absolute Eos (auto) 0.0 10^3/uL (0.0-0.6) 03/29/20 06:40 Absolute Basos (auto) 0.0 10^3/uL (0.0-0.2) 03/29/20 06:40 Seg Neutrophils % 75.3 % (42-78) 03/29/20 06:40 Platelet Estimate Cancelled 03/31/20 07:24 PT 14.2 SEC (11.4-15.4) 03/26/20 13:10 INR 1.08 03/26/20 13:10 VBG pH 7.45 (7.30-7.42) H 03/26/20 13:10 VBG pCO2 35.3 mmHg (35-63) 03/26/20 13:10 VBG HCO3 24.1 mmol/L (20-32) 03/26/20 13:10 VBG Base Excess 0.6 mmol/L 03/26/20 13:10 Sodium 139.9 mmol/L (137-145) 03/29/20 06:40 Potassium 3.6 mmol/L (3.6-5.0) 03/29/20 06:40 Chloride 105 mmol/L (98-107) 03/29/20 06:40 Carbon Dioxide 23 mmol/L (22-30) 03/29/20 06:40 Anion Gap 12 (5-19) 03/29/20 06:40 BUN 13 mg/dL (7-20) 03/29/20 06:40 Creatinine 0.68 mg/dL (0.52-1.25) 04/02/20 04:45 Est GFR ( Amer) > 60 (>60) 04/02/20 04:45 Est GFR (MDRD) Non-Af > 60 (>60) 04/02/20 04:45 Glucose 112 mg/dL (75-110) H 03/29/20 06:40 Hemoglobin A1c % 5.4 % (4.7-6.0) 03/27/20 08:35 Lactic Acid 2.0 mmol/L (0.7-2.1) 03/26/20 19:32 Calcium 9.4 mg/dL (8.4-10.2) 03/29/20 06:40 Total Bilirubin 0.8 mg/dL (0.2-1.3) 03/29/20 06:40 Direct Bilirubin 0.1 mg/dL (0.0-0.4) 03/29/20 06:40 Neonat Total Bilirubin Not Reportable 03/29/20 06:40 Neonat Direct Bilirubin Not Reportable 03/29/20 06:40 Neonat Indirect Bili Not Reportable 03/29/20 06:40 AST 59 U/L (17-59) 03/29/20 06:40 ALT 80 U/L (<50) H 03/29/20 06:40 Alkaline Phosphatase 88 U/L (38-126) 03/29/20 06:40 Creatine Kinase 93 U/L (55-170) 03/27/20 08:35 CK-MB (CK-2) 2.49 ng/mL (<4.55) 03/27/20 08:35 Troponin I 0.181 ng/mL 03/27/20 08:35 NT-Pro-B Natriuret Pep 88 pg/mL (<125) 03/26/20 13:10 Total Protein 8.7 g/dL (6.3-8.2) H 03/29/20 06:40 Albumin 3.8 g/dL (3.5-5.0) 03/29/20 06:40 Urine Color YELLOW 04/02/20 04:27 Urine Appearance CLEAR 04/02/20 04:27 Urine pH 6.0 (5.0-9.0) 04/02/20 04:27 Ur Specific [place] 1.013 04/02/20 04:27 Urine Protein NEGATIVE mg/dL (NEGATIVE) 04/02/20 04:27 Urine Glucose (UA) NEGATIVE mg/dL (NEGATIVE) 04/02/20 04:27 Urine Ketones NEGATIVE mg/dL (NEGATIVE) 04/02/20 04:27 Urine Blood NEGATIVE (NEGATIVE) 04/02/20 04:27 Urine Nitrite NEGATIVE (NEGATIVE) 04/02/20 04:27 Urine Nitrite (Reflex) NEGATIVE (NEGATIVE) 03/26/20 15:44 Urine Bilirubin NEGATIVE (NEGATIVE) 04/02/20 04:27 Urine Urobilinogen NEGATIVE mg/dL (<2.0) 04/02/20 04:27 Ur Leukocyte Esterase NEGATIVE (NEGATIVE) 04/02/20 04:27 Leukocyte Esterase Rfl NEGATIVE (NEGATIVE) 03/26/20 15:44 Urine WBC (Auto) 0 /HPF 04/02/20 04:27 Urine RBC (Auto) 0 /HPF 03/31/20 05:45 U Hyaline Cast (Auto) 1 /LPF 04/02/20 04:27 Urine Bacteria (Auto) TRACE /HPF 03/26/20 15:44 Urine WBC (Reflex) < 1 /HPF 03/26/20 15:44 Urine Mucus (Auto) RARE /LPF 04/02/20 04:27 Urine Ascorbic Acid NEGATIVE (NEGATIVE) 04/02/20 04:27 Time Trough Drawn 0445 04/02/20 04:45 Vancomycin Trough 15.9 ug/mL (5.0-20.0) 04/02/20 04:45 COVID-19 Source See comment 03/26/20 13:49 COVID-19 (TIM) DETECTED (Not Detect) A 03/26/20 13:49 Influenza A (Rapid) NEGATIVE (NEGATIVE) 03/26/20 13:49 Influenza B (Rapid) NEGATIVE (NEGATIVE) 03/26/20 13:49 Slides for Path Review Cancelled 03/31/20 07:24 03/26/20 03/26/20 03/26/20 13:10 17:37 19:32 CK-MB (CK-2) 3.97 4.74 H Troponin I 0.019 0.128 0.161 NT-Pro-B Natriuret Pep 88 03/27/20 03/27/20 01:49 08:35 CK-MB (CK-2) 3.36 2.49 Troponin I 0.265 0.181 NT-Pro-B Natriuret Pep Impressions: Chest/Abdomen CTA 03/26/20 00:00 IMPRESSION: 1. No pulmonary embolus. 2. Scattered patchy bilateral airspace opacities. Commonly reported imaging features of viral pneumonia are present. Other processes such as influenza pneumonia and organizing pneumonia, as can be seen with drug toxicity and connective tissue disease, can cause a similar imaging pattern. [PneTyp] Reference: https://pubs.rsna.org/doi/full/10.1148/ryct.8807205635 3. 5 mm left solid pulmonary nodule. No routine follow-up imaging is recommended. These guidelines do not apply to immunocompromised patients and patients with cancer. Follow up in patients with significant comorbidities as clinically warranted. For lung cancer screening, adhere to Lung-RADS guidelines. Reference: Radiology. 2017; 284(1):228-43. This exam was performed according to our departmental dose-optimization program, which includes automated exposure control, adjustment of the mA and/or kV according to patient size and/or use of iterative reconstruction technique. Chest X-Ray 03/26/20 13:25 IMPRESSION: Bibasilar infiltrates right greater than left. Findings are most consistent with pneumonia. Plan Health Concerns: Compliance with follow up and adherence to COVID-19 precautions. Plan of Treatment: Emphasized compliance with isolation precautions. Goals: Reduce readmission risk through close community follow up. Enrollment with pain management team for chronic pain opiate prescription monitoring. Time Spent: Greater than 30 Minutes Stroke Is this a Stroke Patient?: No Acute Heart Failure Is this a Heart Failure Patient?: No
[2020-04-04 17:39] VITALS: BP 123/78
== END 2020-04-04 18:49 | disposition home or self-care (01) | DRG 177 ==
LOC: ER 12:52 → EH 15:05 → 3N 16:51
PROVIDERS: ADMIT Internal Medicine Geriatric Medicine; ATTEND Internal Medicine Geriatric Medicine
PROC: XW033E5 Introduction of Remdesivir Anti-infective into Peripheral Vein, Percutaneous Approach, New Technology Group 5 (ICD-10-PCS; principal; 2020-04-01)
PROC: 3E02340 Introduction of Influenza Vaccine into Muscle, Percutaneous Approach (ICD-10-PCS; 2020-04-04)
DX: U07.1 COVID-19 (principal); J15.212 Pneumonia due to Methicillin resistant Staphylococcus aureus; G89.4 Chronic pain syndrome; I25.9 Chronic ischemic heart disease, unspecified; I25.10 Atherosclerotic heart disease of native coronary artery without angina pectoris; E78.5 Hyperlipidemia, unspecified; I10 Essential (primary) hypertension; J44.9 Chronic obstructive pulmonary disease, unspecified; K21.9 Gastro-esophageal reflux disease without esophagitis; I25.2 Old myocardial infarction; Z23 Encounter for immunization; Z79.891 Long term (current) use of opiate analgesic; Z79.02 Long term (current) use of antithrombotics/antiplatelets; Z79.899 Other long term (current) drug therapy; Z95.5 Presence of coronary angioplasty implant and graft; Z87.891 Personal history of nicotine dependence; Z88.6 Allergy status to analgesic agent
CPT/HCPCS: 36415; 71045; 71275; 80053; 80202; 81001; 82550; 82553; 82565; 82803; 83036; 83605; 83880; 84484; 85025; 85027; 85610; 87040; 87070; 87077; 87086; 87186; 87205; 87635; 87804; 90471; 90686; 93005; 93010; 96365; 99285; C9803; G0008; J0692; J0696; J1100; J1650; J1956; J3370; J3490; J7030; J7050; J7060; J7120